=== PATIENT | female | born 1955 | race Caucasian/White ===

== ENCOUNTER → 2016-12-22 | Outpatient (CLI) | payer OTHER ==
--- NOTE | 2016-12-23 07:52 | XR ---
Right knee HISTORY: Pain and swelling 2 views of the right knee There is an ossific density in the suprapatellar bursa measuring approximately 19 x 17 mm. There is a joint effusion. Joint space loss at the patellofemoral joint is present with marginal spurring, royce inal spurring and joint space loss also present in the medial compartment. Sclerotic appearance in th e medial femoral condyle is noted measuring approximately 2.4 cm and shows a nonaggressive appearance , there is no cortical destruction or endosteal scalloping. Alignment is maintained. 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 Bone lesion may repres ent an enchondroma in the medial femoral condyle, if pain is attributable to this lesion, additional imaging would be recommended.
== END | disposition home or self-care (01) ==
LOC: RADXRYALE 15:06
PROVIDERS: ATTEND Internal Medicine
DX: M17.11 Unilateral primary osteoarthritis, right knee (principal)

== ENCOUNTER → 2019-05-17 | Outpatient (CLI) | payer OTHER ==
--- NOTE | 2019-05-18 09:45 | MM ---
Reason for exam: screening (asymptomatic). Last mammogram was performed 11 years and 1 month ago. History: Patient is postmenopausal. Took estrogen for 25 years beginning at age 27. Physical Findings: A clinical breast exam by your physician is recommended on an annual basis and results should be correlated with mammographic findings. MG Screening Mammo w CAD Bilateral CC and MLO view(s) were taken. Prior study comparison: April 03, 2008, bilateral digital screening mammogram. April 25, 2003, bilateral screening mammogram, performed at [facility]. The breast tissue is extremely dense which could obscure a lesion on mammography. Stable benign calcifications. There is no discrete abnormality. No significant changes when compared with prior studies. ASSESSMENT: Benign, BI-RAD 2 RECOMMENDATION: Routine screening mammogram of both breasts in 1 year.
== END | disposition home or self-care (01) ==
LOC: RADMAMWWP 14:14
PROVIDERS: ATTEND Internal Medicine
DX: Z12.31 Encounter for screening mammogram for malignant neoplasm of breast (principal)
CPT/HCPCS: 77067

== ENCOUNTER → 2019-05-31 | Outpatient (CLI) | payer OTHER ==
--- NOTE | 2019-05-31 16:02 | XR ---
EXAMINATION TYPE: XR knee limited RT DATE OF EXAM: 05/31/2019 COMPARISON: NONE HISTORY: Pain TECHNIQUE: 2 views are submitted. FINDINGS: Diffuse osteopenia. There is narrowing of the medial compartment and patellofemoral compartment of th e joint space. Soft tissue ossifications are seen overlying the suprapatellar bursa. Suggestion of a bipartite patella. Diffuse osteopenia noted and there is a small amount of fluid in the suprapatellar bursa. IMPRESSION: 1. Moderate to severe osteoarthritis. 2. Incidental note made of soft tissue calcifications which are nonspecific but can occasionally be a ssociated with dystrophic calcification or synovial chondromatosis
== END | disposition home or self-care (01) ==
LOC: RADXRYALE 13:27
PROVIDERS: ATTEND Internal Medicine
DX: M17.11 Unilateral primary osteoarthritis, right knee (principal)

== ENCOUNTER → 2019-07-01 | Outpatient (CLI) | payer OTHER ==
--- NOTE | 2019-07-01 17:07 | MR ---
EXAMINATION TYPE: MR knee RT wo con DATE OF EXAM: 07/01/2019 COMPARISON: Radiographs 05/31/2019 HISTORY: 63-year-old female Pain right knee TECHNIQUE: Multiplanar, multisequence imaging of the right knee is performed without IV contrast. FINDINGS: ACL and PCL are intact. Some edematous change along the myotendinous junction of the popliteus. LCL complex otherwise intact. Some edematous change on either side of the intact MCL fibers. There is a posterior root tear of the medial meniscus and additional horizontal cleavage tear involvi ng the posterior horn extending to the junction with the posterior body. The body of the medial menis cus is moderately extruded. Severe loss of cartilage and joint space especially along the mid weightbearing and mid peripheral as pect of the medial compartment. Underlying marrow edema and marginal spurring. Lateral meniscus appears intact. Mild diffuse thinning of lateral compartment articular cartilage vol ume with some superficial cartilage irregularity along the posterior weightbearing aspect of the femo ral condyle. Severe loss of cartilage along the medial and lateral patellar facets with marginal spurring in the p atellofemoral compartment. Extensor mechanism is intact. Moderate to large knee joint effusion with a couple large 1.7 cm loose bodies within the medial gutte r of the suprapatellar pouch. No sizable Rodriguez's cyst. However, prominent fluid extends along the pop liteus tendon sheath with numerous small loose bodies measuring up to 6 mm. Multilocular ganglion cyst measuring up to 3.1 x 2.6 cm at the lateral gastrocnemius origin. Normal pulmonary artery anatomy. Mild generalized muscular atrophy. No suspicious bone marrow replace ment. IMPRESSION: 1. Severe medial compartmental osteoarthrosis with reactive marrow edema. There is a posterior root t ear of the medial meniscus with extrusion of the meniscal body and additional horizontal cleavage tea r of the posterior horn. 2. Moderate overall patellofemoral compartmental osteoarthrosis with severe cartilage loss along the medial and lateral patellar facets. 3. Gvbl-kq-bktngjio strain along the myotendinous junction the popliteus and grade 1 MCL sprain. 4. Moderate to large knee joint effusion with a couple 1.7 cm loose bodies in the medial gutter of th e suprapatellar pouch and numerous small loose bodies measuring up to 6 mm along the popliteus tendon sheath.
== END | disposition home or self-care (01) ==
LOC: RADMRIMAIN 09:17
PROVIDERS: ATTEND Physician Assistant
DX: M17.11 Unilateral primary osteoarthritis, right knee (principal); S83.241A Other tear of medial meniscus, current injury, right knee, initial encounter; S83.411A Sprain of medial collateral ligament of right knee, initial encounter; D21.21 Benign neoplasm of connective and other soft tissue of right lower limb, including hip

== ENCOUNTER → 2021-01-02 | Outpatient (CLI) | payer OTHER ==
--- NOTE | 2021-01-06 15:07 | MM ---
Reason for exam: screening (asymptomatic). Last mammogram was performed 1 year and 8 months ago. History: Patient is postmenopausal. Took estrogen for 25 years beginning at age 27. Physical Findings: A clinical breast exam by your physician is recommended on an annual basis and results should be correlated with mammographic findings. MG Screening Mammo w CAD Bilateral CC and MLO view(s) were taken. Prior study comparison: May 17, 2019, bilateral MG screening mammo w CAD. The breast tissue is extremely dense which could obscure a lesion on mammography. Benign vascular, round and dystrophic calcifications. No significant changes when compared with prior studies. ASSESSMENT: Benign, BI-RAD 2 RECOMMENDATION: Routine screening mammogram of both breasts in 1 year. Patient should continue monthly self breast exams. A negative report should not preclude additional follow up of suspicious palpable abnormalities.
== END | disposition home or self-care (01) ==
LOC: RADMAMWWP 11:30
PROVIDERS: ATTEND Internal Medicine
DX: Z12.31 Encounter for screening mammogram for malignant neoplasm of breast (principal); Z78.0 Asymptomatic menopausal state; Z79.818 Long term (current) use of other agents affecting estrogen receptors and estrogen levels
CPT/HCPCS: 77067

== ENCOUNTER → 2022-10-28 | Outpatient (CLI) | payer MEDICARE, OTHER ==
[2022-10-28 15:29] LABS: INR 0.9 (<1.2); Partial Thromboplastin Time 23.4 sec (22.0-30.0)
[2022-10-28 20:05] LABS: HCT 33.1 % (37.2-46.3); MCH 30.3 pg (27.0-32.0); MCHC 33.2 g/dL (32.0-37.0); MCV 91.2 fL (80.0-97.0); Mean Platelet Volume 8.5 fL (9.5-12.2); NRBC Per 100 WBC 0 /100 WBCS (0.0-0.0); Platelet Count 556 X 10*3/uL (140-440); RBC 3.63 X 10*6/uL (4.10-5.20); RDW 12.7 % (11.5-14.5); WBC 8.84 X 10*3/uL (4.50-10.00)
[2022-10-28 20:48] LABS: African American GFR (CKD) 110.3 (60.0-200.0); Albumin 4.3 g/dL (3.8-4.9); Albumin/Globulin Ratio 1.55 (1.60-3.17); Anion Gap 15.8 mmol/L (10.00-18.00); BUN/Creat Ratio 10.76 Ratio (12.00-20.00); Blood Urea Nitrogen 6.6 mg/dL (9.0-27.0); Calcium 9.4 mg/dL (8.7-10.3); Carbon Dioxide 21.1 mmol/L (20.0-27.5); Globulin 2.8 g/dL (1.6-3.3); Non-African American GFR(CKD) 95.2 (60.0-200.0); Potassium 4.4 mmol/L (3.5-5.5); Total Bilirubin 0.3 mg/dL (0.30-1.20)
[2022-10-28 21:19] LABS: Appearance,Urine Clear (Clear); Bilirubin,Urine Negative (Negative); Blood,Urine Negative (Negative); Color,Urine Yellow (Yellow); Ketones,Urine Negative (Negative); Nitrite,Urine Negative (Negative); Specific Gravity,Urine 1.004 (1.001-1.030); Urobilinogen,Urine 0.2 (0.2,1.0)
== END | disposition home or self-care (01) ==
LOC: LABPAT 14:32
PROVIDERS: ATTEND Orthopaedic Surgery Sports Medicine
DX: Z01.812 Encounter for preprocedural laboratory examination (principal); M17.11 Unilateral primary osteoarthritis, right knee
CPT/HCPCS: 80053; 81003; 85027; 85610; 85730; 87070

== ENCOUNTER 2022-11-05 05:42 | Day surgery (SDC) | payer MEDICARE, OTHER ==
[~2022-11-05 05:42] MED LIST: ACETAMINOPHEN TAB 500 MG TAB PO PRN; GABAPENTIN 300 MG CAP PO PRN; MELOXICAM 7.5 MG TAB PO PRN; ONDANSETRON 4 MG/2 ML VIAL IVP PRN; TRANEXAMIC ACID IN NACL,ISO-OS 1,000 MG in SALINE 1 100ML.BAG IVPB PRN
[2022-11-05] MEDS ORDERED: DEXAMETHASONE SOD PHOSPHATE 4 MG/ML 1 ML VIAL IV ONE (05:44)
[2022-11-05] MEDS ORDERED: ONDANSETRON 4 MG/2 ML VIAL IVP ONE (05:44)
[2022-11-05] MEDS: LACTATED RINGERS 1,000 ML IV SCH ×2 (05:52→12:22)
[2022-11-05] MEDS ORDERED: MIDAZOLAM 2 MG/2 ML VIAL IVP ONE (06:40)
[2022-11-05] MEDS ORDERED: MIDAZOLAM 2 MG/2 ML VIAL ONE (06:55)
[2022-11-05] MEDS ORDERED: PHENYLEPHRINE-0.9% NACL SYG 1,000 MCG/10 ML SYRINGE ONE (06:55)
[2022-11-05] MEDS ORDERED: SODIUM CHLORIDE 0.9% (PF) 10 ML VIAL ONE (06:55)
[2022-11-05] MEDS ORDERED: TRANEXAMIC ACID IN NACL,ISO-OS 1,000 MG/100 ML BAG ONE (06:55)
[2022-11-05] MEDS ORDERED: PROPOFOL 10 MG/ML 20 ML VIAL IV ONE (06:55)
[2022-11-05] MEDS ORDERED: fentaNYL (PF) 50 MCG/ML 2 ML AMP ONE (06:55)
[2022-11-05] MEDS ORDERED: ROPIVACAINE 5 MG/ML 30 ML VIAL ONE (06:55)
[2022-11-05] MEDS ORDERED: HYDROmorphone 0.5 MG/0.5 ML SYRINGE IVP PRN ×4 (07:00→08:59)
--- NOTE | 2022-11-05 08:35 | P.ANPRN ---
Procedure Note - Anesthesia - Nerve Block Performed Right Adductor Canal Infusion Time Out Performed: Yes (0639) Date of Procedure: 11/05/22 Procedure Start Time: 06:40 Procedure Stop Time: 06:46 Location of Patient: PreOp Indication: Acute Post-Operative Pain, Requested by Surgeon Specifically requested for management of pain by DrShanae: Stanley Tyson Sedation Type: Sedate with meaningful contact maintained Preparation: Sterile Prep, Sterile Dressing Position: Supine Catheter Depth at Skin (cm): 5 Catheter: Indwelling Needle Types: Pajunk Needle Gauge: 18 Ultrasound used to visualize needle placement: Yes Ultrasound used to observe medication spread: Yes Injectate: 0.5% Ropivacaine (see comment for volume) (15cc +5cc nacl pf) Blood Aspirated: No Pain Paresthesia on Injection Noted: No Resistance on Injection: Normal Image Stored and Saved: Yes Events: Uneventful and Well Tolerated
--- NOTE | 2022-11-05 08:36 | P.ANPRN ---
Procedure Note - Anesthesia - Nerve Block Performed Right iPack Single Time Out Performed: Yes (0639) Date of Procedure: 11/05/22 Procedure Start Time: 06:47 Procedure Stop Time: 06:50 Location of Patient: PreOp Indication: Acute Post-Operative Pain, Requested by Surgeon Specifically requested for management of pain by DrShanae: Stanley Tyson Sedation Type: Sedate with meaningful contact maintained Preparation: Sterile Prep Position: Supine Catheter: None Needle Types: Pajunk Needle Gauge: 21 Ultrasound used to visualize needle placement: Yes Ultrasound used to observe medication spread: Yes Injectate: 0.5% Ropivacaine (see comment for volume) (15cc +5cc nacl pf) Blood Aspirated: No Pain Paresthesia on Injection Noted: No Resistance on Injection: Normal Image Stored and Saved: Yes Events: Uneventful and Well Tolerated
[2022-11-05] MEDS ORDERED: ONDANSETRON 4 MG/2 ML VIAL IVP PRN (08:59)
[2022-11-05] MEDS ORDERED: diazePAM 5 MG TAB PO PRN (08:59)
[2022-11-05] MEDS ORDERED: NA PHOS,M-B/NA PHOS,DI-BA 133 ML ENEMA RECTAL PRN (08:59)
[2022-11-05] MEDS ORDERED: traMADol 50 MG TAB PO PRN (08:59)
[2022-11-05] MEDS ORDERED: bisacodyL 10 MG SUPP RECTAL PRN (08:59)
[2022-11-05] MEDS ORDERED: ACETAMINOPHEN TAB 325 MG TAB PO PRN (08:59)
[2022-11-05] MEDS ORDERED: TEMAZEPAM 15 MG CAP PO PRN (08:59)
[2022-11-05] MEDS ORDERED: NALOXONE 0.4 MG/ML 1 ML VIAL IV PRN (08:59)
[2022-11-05] MEDS ORDERED: MAGNESIUM HYDROXIDE 2,400 MG/10 ML CUP PO PRN (08:59)
[2022-11-05] MEDS ORDERED: ROPIVACAINE 1,100 MG, SODIUM CHLORIDE 0.9% 500 ML 330 ML, EMPTY PAIN BALL 1 EACH MISCELLANE PRN ×2 (09:04)
--- NOTE | 2022-11-05 10:08 | XR ---
EXAMINATION TYPE: XR knee limited RT DATE OF EXAM: 11/05/2022 COMPARISON: NONE TECHNIQUE: Two views submitted HISTORY: Post op FINDINGS: There is a prosthetic knee in near anatomic alignment. There is soft tissue edema and emphysema. IMPRESSION: 1. Postoperative change. Appears in near-anatomic alignment
--- NOTE | 2022-11-05 13:45 | OP ---
OPERATIVE REPORT DATE OF SERVICE : 11/05/2022 FINISH REMOVER: Jeremiah Kaufman PA-C PREOPERATIVE DIAGNOSIS: Right knee osteoarthrosis. POSTOPERATIVE DIAGNOSIS: Right knee osteoarthrosis. PROCEDURES PERFORMED: Right total knee arthroplasty. ANESTHESIA: Spinal with sedation. ESTIMATED BLOOD LOSS: 100 mL. TOURNIQUET TIME: 47 minutes at 250 mmHg. COMPLICATIONS: None apparent. DRAINS: None. DISPOSITION: Postanesthesia care unit. INDICATIONS FOR PROCEDURE: Sarah is a 67-year-old female with longstanding history of right knee pain. History and physical examination are consistent with advanced right knee osteoarthrosis. She has been through significant operative management at this point. Further treatment options were discussed, and she decided to go for the right total knee arthroplasty. The risks of procedure were discussed with her in detail. These risks include but are not limited to risk of infection, nerve damage, bleeding, pain, and a small risk of deep vein thrombosis which could lead to fatal pulmonary embolism. There is also risk of loosening of the implant which could require revision operation. The patient understands these risks. All of her questions were answered to her satisfaction. An appropriate informed consent was obtained. DESCRIPTION OF PROCEDURE: The patient was identified in the preoperative holding area. Surgical site was marked by both the patient and myself. She was given 2 g of Ancef IV prophylactic purposes. She was then transported to the operative suite. She was placed supine on the operating room table. A spinal anesthetic was then administered, dosed per the Anesthesia Department without apparent complication. Examination under anesthesia was then performed. The patient was 2 to 3 degrees shy of full extension. She had 100 degrees of flexion. Medial collateral ligament, lateral collateral ligament, posterior cruciate ligaments were stable. Tourniquet was then placed high on the right upper thigh well-padded in preparation for surgery. The patient's right lower extremity was then prepped and draped in the usual sterile fashion. Standard surgical pause undertaken to ensure that we were operating the correct site and that appropriate preoperative antibiotics had been given. All staff in the room were in agreement, and we proceeded. The outlines of the patella marked with a surgical pen. A planned 12 cm vertical incision centered over the patella was marked with a surgical pen. Upper leg was then exsanguinated with an Esmarch dressing. The knee was then flexed, and the tourniquet was inflated to 250 mmHg. The total tourniquet time for the procedure was 47 minutes. Incision was then made with a 10-blade scalpel. This dissection was carried down sharply overlying fascia. Great care was taken to minimize the skin flaps. The knee was then exposed using a standard medial parapatellar approach. A small cuff of quadriceps tendon was then left for suturing. She was in quite a bit of varus preoperatively. A standard medial release was then made. Superficial medial collateral ligament dissected off the bone around to the posterior aspect of the proximal tibia. The medial meniscus was then excised as well. The lateral meniscus was also released anteriorly. The leg was then externally rotated. The patella was everted. The knee was flexed. Retractors were then placed to protect the collateral ligaments. I then proceeded to remove the infrapatellar fat pad. This was excised sharply tangentially with fibers of the patellar tendon. I then proceeded to remove the peripheral osteophytes. This was done with a rongeur. I then proceeded with the distal resection. She did have near full extension. A planned 9 mm resection was then done. The femoral canal was then entered in midline of the femur approximately 10 mm anterior to the origin of the posterior cruciate ligament. The reshma was then advanced down the center of the femur and placed intramedullary. Based on the preoperative radiographs, the angle between the anatomic and mechanical axis of the femur was approximately 4 to 5 degrees. The valgus angle of the distal femoral cutting guide was then set at 4 degrees for the right knee. The distal femoral cutting guide was then advanced over the intramedullary reshma. This was seated firmly against the femur. I then as mentioned, planned to take 9 mm off the distal femur. The cutting block was then secured onto the femur with pins. The jig was then removed. The distal femoral cut was made through the slot of the block. The pins were removed. The distal femoral cutting block was removed. The accuracy of the distal femoral cuts was checked with 2 flat bars. I then proceeded with femoral sizing. Posterior referencing sizing guide was held firmly against the resected distal surface of the femur. The posterior condyles were resting on the posterior plane of the guide. The sizing stylus was then placed on the anterior femur. The size was measured as a size 8. I then assessed for femoral rotation. Planned for 3 degrees of external rotation. A 3 degrees of external rotation was placed onto the jig. These holes were then marked and then confirmed with the rotation by 3 separate methods. This was done using epicondylar axis as well as Whitesides line and posterior referencing. It was deemed that the external rotation was proper. I therefore placed the femoral cutting block. This was placed over the previously placed pin holes. The Manolo wing was then placed on the anterior slots to ensure that we would not notch the anterior femur with the anterior femoral cut. I then proceeded with the anterior femoral cut. This was flushed with the anterior cortex of the femur. The posterior cuts were then made followed by the anterior chamfer cut, then the posterior chamfer cut. The cutting block was then removed. Throughout the resection, the collateral ligaments were protected with retractors. I then placed a trial size 8 femur. It was slightly wide but the narrow fit very nicely, and it fit flush with the distal end of the femur. The drill hole was then made. I then proceeded with the tibial cut. Planned for cruciate-retaining knee. The guide was placed and set for varus, valgus and for slope. The height was set for approximately 2 mm resection from the medial tibial plateau which was the lower side. I was happy with alignment and the amount of resection. The cutting block was then pinned to the proximal tibia. The alignment reshma was removed and the proximal tibia was resected with a reciprocating saw. Again, this was done with retractors protecting the collateral ligaments as well as the posterior cruciate ligament. I then proceeded to evaluate the flexion extension gaps. A 10 mm block was then placed. The flexion extension gaps were equal. I then proceeded with resection of posterior osteophytes. She had fairly extensive posterior osteophytes. This was done using a curved osteotome. This resected the posterior osteophytes, and posterior capsular stripping was done off the posterior aspect of the femur at this time. The osteophytes were then removed. I then proceeded with resection of the patella. The thickness of patella was measured using the caliper. The thickness was 22 mm. The thickness of the anticipated patellar dome was taken into account. Resection was then performed and confirmed to be equal in 4 quadrants using a caliper. Approximately 14 mm of bone remained after resection. A 29 x 8 mm standard patellar trial was then placed. The holes drilled. The trial was then placed. I then proceeded with sizing the tibial plate. A size D tibial plate fit very nicely. I then placed the trial femur, the tibial tray, and the patellar button. A 10 mm trial tibial insert was also placed. The components fit very nicely. She had full extension and flexion. The extension and flexion gaps were equal and stable to both varus and valgus stress. The patella tracked appropriately. The tibial tray rotation was then marked with a Bovie. This was externally rotated properly. I then proceeded with tibial preparation. I first drilled the femoral holes and removed the femoral component. The tibial tray was then set for proper external rotation as well as medial and lateral placement onto the tibia. It was then pinned into place. I then proceeded with punching the keel. I then decided to proceed with cementing of all our components. The knee was thoroughly irrigated with sterile saline solution via pulse lavage. The lateral genicular artery was identified and cauterized. All blood was removed from the bone of the tibia, femur, and patella with pulsed lavage. I then proceeded with cementing. Two packs of antibiotic bone cement prepared on the back table by the science technician. I then proceeded with cementing the tibia first. The cement was impacted into the keel as well as deeply seated into the bone. A second coat of cement was then placed. The tibia was then impacted into place. Excess cement was removed with Wayne's and Joker's. I then proceeded with cementing of the femoral component. The femoral component was also cemented using standard technique. Excess cement was removed. A 10 mm trial insert was then placed in the knee. It was brought into full extension with a constant axial load placed until the cement had hardened. The patellar component was then cemented. This was held firmly with a compressive device until the cement had dried. When the cement had dried, the knee was taken out of extension. All excess cement was removed from around the prosthesis. I then trialed the knee with a 10 mm insert. Flexion and extension gaps were appropriate. The knee was stable. It came into full extension. I decided to go forward with a 10 mm Medial Congruent cross-linked cruciate- retaining tibial insert. Polyethylene was then placed onto the tibial tray and locked into place. The knee was then reduced. The knee was again further irrigated with sterile saline solution with antibiotic added. The tourniquet was then deflated. Total tourniquet time for the procedure was 47 minutes at 250 mmHg. Final components were Aurelio Persona size 8 narrow cruciate-retaining femoral component, size D tibial tray, a 10 mm Medial Congruent cruciate-retaining polyethylene insert, and a 29 x 8 mm patella. I then proceeded with closure. Again, the knee was thoroughly irrigated. The quadriceps tendon and medial retinaculum were reapproximated with #2 Ethibond suture. The extensor mechanism was then closed with a running #2 Quill suture. Subcutaneous tissues were closed with 2-0 Vicryl interrupted suture. The skin was closed with a running 3-0 Quill suture. Dermabond was applied to the incision. Sterile compressive dressing was then applied. All sponge and needle counts were deemed correct prior to closure. The patient tolerated the procedure without apparent complication. She was transferred to the recovery room in stable condition. MMODL / IJN: [id number] /
[2022-11-05] MEDS: HYDROcodone/APAP 7.5-325MG 1 EACH TAB PO PRN ×2 (15:27→20:45)
--- NOTE | 2022-11-05 16:12 | OP ---
OPERATIVE REPORT DATE OF SERVICE : 11/05/2022 RAIL LAYER: Jeremiah Kaufman PA-C. PREOPERATIVE DIAGNOSIS: Right knee osteoarthrosis. POSTOPERATIVE DIAGNOSIS: Right knee osteoarthrosis. OPERATION: Right total knee arthroplasty. ANESTHESIA: Spinal with sedation. ESTIMATED BLOOD LOSS: 100 mL. TOURNIQUET TIME: 47 minutes at 250 mmHg. COMPLICATIONS: None apparent. DRAINS: None. DISPOSITION: Postanesthesia care unit. INDICATIONS FOR PROCEDURE: Sarah is a very pleasant 67-year-old female with longstanding history of right knee pain. Her symptoms examination are consistent with advanced right knee osteoarthrosis. She has been through significant operative management up to this point. Further treatment options were discussed, and she decided to go for the right total knee arthroplasty. Risks of procedure were discussed with her in detail. These risks include but are not limited to risk of infection, nerve damage, bleeding, pain, and a small risk of deep vein thrombosis which could lead to fatal pulmonary embolism. There is also small risk of loosening of the implant which could require revision operation. The patient understands these risks. All of her questions were answered to her satisfaction. Appropriate informed consent was obtained. DESCRIPTION OF PROCEDURE: The patient was identified in the preoperative holding area. Surgical site was marked by both the patient and myself. She was given 2 g of Ancef IV for prophylactic purposes. She was then transferred to the operative suite. She was placed supine on the operating room table. A spinal anesthetic was then administered, dosed per the Anesthesia Department without apparent complication. An examination under anesthesia was then performed. The patient was 2 to 3 degrees shy of full extension. She had 100 degrees of flexion. Medial collateral ligament, lateral collateral ligament, posterior cruciate ligaments were stable. Tourniquet was then placed high on the right upper thigh, well-padded in preparation for surgery. The patient's right lower extremity was then prepped and draped in the usual sterile fashion. Standard surgical pause undertaken to ensure that we were operating the correct site and that appropriate preoperative antibiotics had been given. All staff in the room were in agreement, and we proceeded. The outlines of the patella marked with a surgical pen. A planned 12 cm vertical incision centered over the patella was marked with a surgical pen. Upper leg was then exsanguinated with an Esmarch dressing. The knee was then flexed, and the tourniquet was inflated to 250 mmHg. The total tourniquet time for the procedure was 47 minutes. Incision was then made with a 10-blade scalpel. This dissection was carried down sharply overlying fascia. Great care was taken to minimize the skin flaps. The knee was then exposed using a standard medial parapatellar approach. A small cuff of quadriceps tendon was then left for suturing. She was in a bit of varus preoperatively. A standard medial release was then made. Superficial medial collateral ligament dissected off the bone around to the posterior aspect of the proximal tibia. The medial meniscus was then excised as well. The lateral meniscus was also released anteriorly. The leg was then externally rotated. The patella was everted. The knee was flexed. Retractors were then placed to protect the collateral ligaments. I then proceeded to remove the infrapatellar fat pad. This was excised sharply tangentially DICTATION ENDS HERE BRANDON / TETO: [id number] /
[2022-11-05] MEDS: ASPIRIN 81 MG PO SCH (20:45)
[2022-11-05] MEDS ORDERED: SENNOSIDES-DOCUSATE SODIUM 1 EACH TAB PO SCH (21:00)
[2022-11-06] MEDS: LACTATED RINGERS 1,000 ML IV SCH ×4 (00:16→16:01)
[2022-11-06] MEDS: HYDROcodone/APAP 7.5-325MG 1 EACH TAB PO PRN ×3 (04:11→16:09)
[2022-11-06] MEDS: ASPIRIN 81 MG PO SCH (08:08)
--- NOTE | 2022-11-06 09:51 | P.PN ---
Progress Note - Text Progress Note Date: 11/06/22 (638) Anesthesiology Postop day 1 status post total knee arthroplasty with adductor canal catheter. Patient doing well. VAS 2 out of 10. Gross strength intact in lower extremity. Afebrile. Denies alterations in sensorium. Catheter site intact. Heart regular rate Lungs nonlabored Abdomen nondistended Assessment: Postop day 1 status post total knee arthroplasty with adductor canal catheter Plan: 1.All questions answered. Maintain catheter 2 more days with patient removal at home. Instructions to be given at discharge. 2.This note was dictated using [employer] software. Please be advised there is a potential for misspellings or errors in loading machine tool setter.
[2022-11-06] MEDS ORDERED: LOSARTAN 50 MG TAB PO SCH (10:30)
[2022-11-06] MEDS ORDERED: CHOLECALCIFEROL 25 MCG (1000 IU) TABLET PO SCH (10:30)
[2022-11-06] MEDS ORDERED: METOPROLOL TARTRATE 50 MG TAB PO SCH (10:30)
[2022-11-06 11:12] LABS: HCT 28.9 % (37.2-46.3); HGB 9.3 g/dL (12.0-15.0); MCH 29.5 pg (27.0-32.0); MCHC 32.2 g/dL (32.0-37.0); MCV 91.7 fL (80.0-97.0); NRBC Per 100 WBC 0 /100 WBCS (0.0-0.0); Platelet Count 400 X 10*3/uL (140-440); RBC 3.15 X 10*6/uL (4.10-5.20); RDW 13.2 % (11.5-14.5); WBC 13.03 X 10*3/uL (4.50-10.00)
[2022-11-06] MEDS ORDERED: MULTIVITAMINS, THERA 1 EACH TAB PO SCH (12:00)
[2022-11-06 13:13] LABS: Acanthocytes 2+; Basophils # (A) 0.05 X 10*3/uL (0.00-0.10); Basophils % (A) 0.4 %; Elliptocytes 2+; Eosinophils # (A) 0.06 X 10*3/uL (0.04-0.35); Eosinophils % (A) 0.5 %; Immature Grans, Automated 0.5 %; Lymphocytes # (A) 1.77 X 10*3/uL (0.90-5.00); Lymphocytes % (A) 13.6 %; Monocytes # (A) 1.72 X 10*3/uL (0.20-1.00); Monocytes % (A) 13.2 %; Neutrophils # (A) 9.37 X 10*3/uL (1.80-7.70); Neutrophils % (A) 71.8 %
--- NOTE | 2022-11-06 14:43 | P.CONS ---
History of Present Illness - Reason for Consult Consult date: 11/06/22 Medical management, status post right knee arthroplasty - History of Present Illness This is a pleasant 67-year-old female who was admitted under orthopedic services Dr. Tyson and underwent right total knee arthroplasty. Patient reports she follows with Dr. River in the outpatient setting along with Dr. Moore cardiology and underwent presurgical clearance with her primary care provider as well as cardiology. Patient has past medical history of coronary artery disease, COPD, hyperlipidemia, hypertension, osteoarthritis, reports to smoking cigarettes and occasionally uses marijuana herbals. Patient reports to occasionally drinking although not daily. Patient's right knee dressing is dry and intact with no cheryl rounding redness or significant swelling noted. Patient has been up and walking reports is doing well is anticipating going home today. Patient does have some elevated blood pressures of 145/69 and recommend resume medications as she normally takes losartan and Lopressor at home. WBC this morning slightly elevated most likely reactive as patient is afebrile denies shortness of breath or any pain or burning with urination. Patient denies chest pain or palpitations and anxious about going home. Patient reports she is awaiting orthopedic this morning. Review Of Systems: Constitutional: No fever, no chills, no night sweats. No weight change. No weakness, fatigue or lethargy. No daytime sleepiness. EENT: No headache. No blurred vision or double vision, no loss of vision. No loss of Hearing, no ringing in the ears, no dizziness. No nasal drainage or congestion. No epistaxis. No sore throat. Lungs: No shortness of breath, cough, no sputum production. No wheezing. Cardiovascular: No chest pain, no lower extremity edema. No palpitations. No paroxysmal nocturnal dyspnea. No orthopnea. No lightheadedness or dizziness. No syncopal episodes. Abdominal: No abdominal pain. No nausea, vomiting. No diarrhea. No constipation. No bloody or tarry stools.. No loss of appetite. Genitourinary: No dysuria, increased frequency, urgency. No urinary retention. Musculoskeletal: No myalgias. No muscle weakness, no gait dysfunction, no frequent falls. No back pain. No neck pain. Reports some mild right lower extremity discomfort Integumentary: No wounds, no lesions. No rash or pruritus. No unusual bruising. No change in hair or nails. Neurologic: No aphasia. No facial droop. No change in mentation. No head injury. No headache. No paralysis. No paresthesia. Psychiatric: No depression. No anxiety. No mood swings. Endocrine: No abnormal blood sugars. No weight change. No excessive sweating or thirst. No cold intolerance. PHYSICAL EXAMINATION: GENERAL: The patient is alert and oriented x4, Well developed, well nourished. HEENT: Pupils are round and equally reacting to light. EOMI. no scleral icterus. No conjunctival pallor. Normocephalic, atraumatic. No pharyngeal erythema. No thyromegaly. CARDIOVASCULAR: S1 and S2 muffled PULMONARY: diminished breath sounds bilaterally with no wheezing or rhonchi noted. ABDOMEN: soft. Nontender on exam. non-distended, normoactive bowel sounds. No palpable organomegaly. MUSCULOSKELETAL: No joint swelling or deformity. Right knee surgical dressing is dry and intact with no redness and minimal swelling noted EXTREMITIES: No cyanosis, clubbing, or pedal edema. NEUROLOGICAL: Gross neurological examination did not reveal any focal deficits. SKIN: No rashes. Assessment: Status post right total knee arthroplasty Mild leukocytosis, most likely reactive as patient is afebrile with no signs of infection Hypertension Hyperlipidemia History of COPD, not in exacerbation History of coronary artery disease Osteoarthritis Continued ongoing nicotine dependence GI prophylaxis DVT prophylaxis Full code Plan: Recommend to continue with current medications and management per orthopedic services. Patient has been seen and evaluated by PT/OT therapy and reports to doing well. Patient anticipates going home today. Patient is status post right total knee arthroplasty and awaiting orthopedics this morning. Patient is mildly hypertensive and will resume home medications and recommended encouraged to continue taking medications and outpatient follow-up with primary care provider. Clinical medications have been reviewed and resumed and patient is medically stable for discharge today. Thank you kindly for this consultation and we will continue to follow during hospitalization. The impression and plan of care has been dictated by Cinthia Raymond, nurse practitioner as directed. Dr. Stephanie MD I have performed a history and examination and MDM of this patient, discussed the same with the dictator, and agree with the dictator's assessment and plan as written ,documented as a scribe. Based on total visit time, I have performed more than 50% of the visit. Any additional findings or plans will be noted. Past Medical History Past Medical History: Coronary Artery Disease (CAD), COPD, Hyperlipidemia, Hypertension, Osteoarthritis (OA) History of Any Multi-Drug Resistant Organisms: None Reported Past Surgical History: Adenoidectomy, Appendectomy, Cholecystectomy, Heart Catheterization, Hysterectomy, Orthopedic Surgery, Tonsillectomy Additional Past Surgical History / Comment(s): surg. to repair right foot fx., right arm srug, total hysterectomy Past Anesthesia/Blood Transfusion Reactions: Previous Problems w/ Anesthesia Additional Past Anesthesia/Blood Transfusion Reaction / Comm: BP became low after hyst. years ago Past Psychological History: No Psychological Hx Reported Smoking Status: Current every day smoker Past Alcohol Use History: Occasional Additional Past Alcohol Use History / Comment(s): down to 1/2ppd from 1ppd for 30 yrs. Past Drug Use History: Marijuana Additional Drug Use History / Comment(s): edibles @times - Past Family History Mother Family Medical History: No Reported History Medications and Allergies Home Medications Medication Instructions Recorded Confirmed Type Aspirin 81 mg PO DAILY 11/04/22 11/05/22 History Cholecalciferol [Vitamin D3 (25 25 mcg PO DAILY 11/04/22 11/05/22 History Mcg = 1000 Iu)] Ibuprofen [Motrin Ib] 200 - 400 mg PO Q6H PRN 11/04/22 11/05/22 History Losartan Potassium [Cozaar] 50 mg PO DAILY 11/04/22 11/05/22 History Metoprolol Tartrate [Lopressor] 50 mg PO BID 11/04/22 11/05/22 History Rosuvastatin [Crestor] 10 mg PO DAILY 11/04/22 11/05/22 History Aspirin [Adult Low Dose Aspirin EC] 81 mg PO BID #60 tab 11/06/22 Rx Docusate [Colace] 100 mg PO BID #60 capsule 11/06/22 Rx HYDROcodone/APAP 7.5-325MG [[place] 1 - 2 each PO Q6HR PRN #42 tab 11/06/22 Rx 7.5-325] Ondansetron [Zofran] 4 mg PO Q8HR PRN #21 tab 11/06/22 Rx Allergies Allergy/AdvReac Type Severity Reaction Status Date / Time No Known Allergies Allergy Verified 11/05/22 05:48 Physical Exam Vitals: Vital Signs Temp Pulse Pulse Resp BP Pulse Ox 11/06/22 08:05 17 11/06/22 06:55 98.1 F 76 17 145/69 98 11/06/22 01:04 97.8 F 69 18 132/69 96 11/05/22 20:00 98.6 F 70 16 113/44 97 11/05/22 13:00 98.1 F 78 19 155/72 97 11/05/22 12:00 19 11/05/22 11:59 97.4 F L 66 19 137/74 98 11/05/22 11:30 68 16 133/62 97 11/05/22 11:00 74 16 139/73 97 11/05/22 10:45 68 16 129/61 95 11/05/22 10:30 67 16 137/66 96 Intake and Output 11/05/22 11/06/22 11/06/22 22:59 06:59 14:59 Intake Total 118 1250 Balance 118 1250 Intake: Intake, IV Titration 1250 Amount Lactated Ringers 1,000 ml 1200 @ 100 mls/hr IV .Q10H RAMIN Rx#:[id number] ceFAZolin 2 gm In Sodium 50 Chloride 0.9% 50 ml @ 100 mls/hr IVPB Q8HR RAMIN Rx# :[id number] Oral 118 Other: Voiding Method Bedpan Bedpan # Voids 1 1 1 Results CBC & Chem 7: 11/06/22 06:03
[2022-11-06 15:05] VITALS: BP 120/73; PULSE 60; RESP 18; TEMP 98.8
--- NOTE | 2022-11-06 17:32 | P.DS ---
Providers Expected date of discharge: 11/06/22 Attending physician: Stanley Tyson Consults: 11/05/22 08:59 Consult Physician Routine Consulting Provider: Popeye Cuevas Consult Reason/Comments: post op medical management Do you want consulting provider notified?: Yes Primary care physician: Kristen River - Discharge Diagnosis(es) (1) Osteoarthritis of right knee Patient was admitted to the OR on 11/05/22 to undergo a right total knee arthroplasty. She had failed conservative measures as an outpatient and desired to proceed with elective surgery after given informed consent. She underwent the above procedure which she tolerated well without complication. Postoperative hospital course has remained without complication. On day of discharge she is afebrile, vital signs stable, labs within acceptable ranges, tolerating by mouth meds and diet, voiding without difficulty, positive flatus, denies abdominal pain or calf pain, pain is controlled on oral pain medication and has no new complaints. Wound is benign, neurovascular status is intact, calf is soft and nontender, abdomen soft and nontender. Review of systems is negative for numbness, tingling, fever, chills, chest pain, shortness of breath, nausea, vomiting, dizziness, headaches, slurred speech or other. Status: Acute Priority: Medium Procedures: Right TKA Patient Condition at Discharge: Good Plan - Discharge Summary Discharge Rx Participant: Yes New Discharge Prescriptions: New Aspirin [Adult Low Dose Aspirin EC] 81 mg PO BID #60 tab Docusate [Colace] 100 mg PO BID #60 capsule Ondansetron [Zofran] 4 mg PO Q8HR PRN #21 tab PRN Reason: Nausea HYDROcodone/APAP 7.5-325MG [Driver 7.5-325] 1 - 2 each PO Q6HR PRN #42 tab PRN Reason: Pain Continue Rosuvastatin [Crestor] 10 mg PO DAILY Losartan Potassium [Cozaar] 50 mg PO DAILY Ibuprofen [Motrin Ib] 200 - 400 mg PO Q6H PRN PRN Reason: Pain Metoprolol Tartrate [Lopressor] 50 mg PO BID Cholecalciferol [Vitamin D3 (25 Mcg = 1000 Iu)] 25 mcg PO DAILY Aspirin 81 mg PO DAILY Discharge Medication List Aspirin 81 mg PO DAILY 11/04/22 [History] Cholecalciferol [Vitamin D3 (25 Mcg = 1000 Iu)] 25 mcg PO DAILY 11/04/22 [History] Ibuprofen [Motrin Ib] 200 - 400 mg PO Q6H PRN 11/04/22 [History] Losartan Potassium [Cozaar] 50 mg PO DAILY 11/04/22 [History] Metoprolol Tartrate [Lopressor] 50 mg PO BID 11/04/22 [History] Rosuvastatin [Crestor] 10 mg PO DAILY 11/04/22 [History] Aspirin [Adult Low Dose Aspirin EC] 81 mg PO BID #60 tab 11/06/22 [Rx] Docusate [Colace] 100 mg PO BID #60 capsule 11/06/22 [Rx] HYDROcodone/APAP 7.5-325MG [Driver 7.5-325] 1 - 2 each PO Q6HR PRN #42 tab 11/06/22 [Rx] Ondansetron [Zofran] 4 mg PO Q8HR PRN #21 tab 11/06/22 [Rx] Follow up Appointment(s)/Referral(s): Stanley Tyson MD [STAFF PHYSICIAN] - 11/17/22 11:00 am Discharge Disposition: HOME WITH HOME HEALTH SERVICES
[2022-11-07] MEDS ORDERED: ATORVASTATIN 20 MG TAB PO SCH (09:00)
== END 2022-11-06 16:58 | disposition home health service (06) ==
LOC: OR 05:42 → 4SSUR 08:50 → OR 11-06 16:58
PROVIDERS: ATTEND Orthopaedic Surgery Sports Medicine
DX: M17.11 Unilateral primary osteoarthritis, right knee (principal); M25.761 Osteophyte, right knee; G89.18 Other acute postprocedural pain; I10 Essential (primary) hypertension; E78.5 Hyperlipidemia, unspecified; J44.9 Chronic obstructive pulmonary disease, unspecified; F17.210 Nicotine dependence, cigarettes, uncomplicated; F10.20 Alcohol dependence, uncomplicated; Z79.51 Long term (current) use of inhaled steroids; Z79.1 Long term (current) use of non-steroidal anti-inflammatories (NSAID); Z79.899 Other long term (current) drug therapy
CPT/HCPCS: 27447; 97162; 97166; 64999; 64448; 85025; 88300; 73560; C1776; C1713; C1751; J2250; J1100; J0690 ×2; J2405; J3010; J2795; J2370; J2704; J1170

== ENCOUNTER → 2023-04-09 | Outpatient (CLI) | payer MEDICARE ==
[2023-04-09 15:46] LABS: INR 0.9 (<1.2); Partial Thromboplastin Time 24.9 sec (22.0-30.0)
[2023-04-09 16:03] LABS: Prothrombin Time 10.3 sec (10.0-12.5)
[2023-04-09 19:32] LABS: Basophils # (A) 0.06 X 10*3/uL (0.00-0.10); Basophils % (A) 0.8 %; Eosinophils % (A) 2.6 %; HCT 40.5 % (37.2-46.3); HGB 13.4 d/dL (12.0-15.0); Lymphocytes # (A) 1.89 X 10*3/uL (0.90-5.00); Lymphocytes % (A) 24.2 %; MCH 31.6 pg (27.0-32.0); MCHC 33.1 d/dL (32.0-37.0); MCV 95.5 FL (80.0-97.0); Mean Platelet Volume 9.1 FL (9.5-12.2); Monocytes # (A) 0.77 X 10*3/uL (0.20-1.00); Monocytes % (A) 9.8 %; NRBC Per 100 WBC 0 X 10*3/uL (0.00-0.01); Neutrophils # (A) 4.84 X 10*3/uL (1.80-7.70); Neutrophils % (A) 61.8 %; Platelet Count 451 X 10*3/uL (140-440); RBC 4.24 X 10*6/uL (4.10-5.20); RDW 12.7 % (11.5-14.5); WBC 7.82 X 10*3/uL (4.50-10.00)
[2023-04-10 03:11] LABS: ALT 19 U/L (8-44); AST 18 U/L (13-35); Albumin 4.6 d/dL (3.8-4.9); Albumin/Globulin Ratio 1.64 Ratio (1.60-3.17); Alkaline Phosphatase 96 U/L (41-126); Blood Urea Nitrogen 11.9 mg/dL (9.0-27.0); Carbon Dioxide 24.5 mmol/L (21.6-31.8); Chloride 95 mmol/L (96-109); Globulin 2.8 d/dL (1.6-3.3); Glucose 83 mg/dL (70-110); Potassium 5.1 mmol/L (3.5-5.5); Sodium 132 mmol/L (135-145); Total Bilirubin 0.4 mg/dL (0.3-1.2); Total Protein 7.4 d/dL (6.2-8.2)
[2023-04-10 05:20] LABS: Appearance,Urine Clear (Clear); Bilirubin,Urine Negative (Negative); Blood,Urine Negative (Negative); Color,Urine Yellow (Yellow); Ketones,Urine Negative (Negative); Nitrite,Urine Negative (Negative); Specific Gravity,Urine 1.008 (1.001-1.030); Urobilinogen,Urine 0.2 E.U./DL
== END | disposition home or self-care (01) ==
LOC: LABPAT 12:48
PROVIDERS: ATTEND Orthopaedic Surgery Sports Medicine
DX: Z01.812 Encounter for preprocedural laboratory examination (principal); M17.11 Unilateral primary osteoarthritis, right knee
CPT/HCPCS: 80053; 81003; 85025; 85610; 85730; 87070

== ENCOUNTER 2023-04-29 07:25 | Day surgery (SDC) | payer MEDICARE, OTHER ==
[~2023-04-29 07:25] MED LIST changes: +DEXAMETHASONE SOD PHOSPHATE 4 MG/ML 1 ML VIAL IV ONE; +HYDROmorphone 0.5 MG/0.5 ML SYRINGE IVP PRN; +LIDOCAINE 1% (10MG/ML) FOR IV START INTRADERMA PRN; +MIDAZOLAM 2 MG/2 ML VIAL IV PRN; +ONDANSETRON 4 MG/2 ML VIAL IVP ONE; +TRANEXAMIC 1,000 MG/100ML-NACL 1,000 MG in SALINE 1 100ML.BAG IVPB PRN; -TRANEXAMIC ACID IN NACL,ISO-OS 1,000 MG in SALINE 1 100ML.BAG IVPB PRN
[2023-04-29] MEDS: LACTATED RINGERS 1,000 ML IV SCH ×3 (08:19→17:09)
[2023-04-29] MEDS ORDERED: MIDAZOLAM 2 MG/2 ML VIAL IVP ONE (08:20)
[2023-04-29 08:39] LABS: African American GFR (CKD) >90 (>60 ml/min/1.73 sqM); Anion Gap 13 mmol/L; Blood Urea Nitrogen 12 mg/dL (7-17); Calcium 9.3 mg/dL (8.4-10.2); Carbon Dioxide 19 mmol/L (22-30); Chloride 103 mmol/L (98-107); Glucose 119 mg/dL (74-99); Non-African American GFR(CKD) >90 (>60 ml/min/1.73 sqM); Potassium 4.2 mmol/L (3.5-5.1); Sodium 135 mmol/L (137-145)
[2023-04-29] MEDS ORDERED: bisacodyL 10 MG SUPP RECTAL PRN (09:05)
[2023-04-29] MEDS ORDERED: NA PHOS,M-B/NA PHOS,DI-BA 133 ML ENEMA RECTAL PRN (09:05)
[2023-04-29] MEDS ORDERED: ONDANSETRON 4 MG/2 ML VIAL IVP PRN (09:05)
[2023-04-29] MEDS ORDERED: NALOXONE 0.4 MG/ML 1 ML VIAL IV PRN (09:05)
[2023-04-29] MEDS ORDERED: MAGNESIUM HYDROXIDE 2,400 MG/30 ML CUP PO PRN (09:05)
[2023-04-29] MEDS ORDERED: diazePAM 5 MG TAB PO PRN (09:05)
[2023-04-29] MEDS ORDERED: HYDROmorphone 0.5 MG/0.5 ML SYRINGE IVP PRN ×3 (09:05)
[2023-04-29] MEDS ORDERED: ACETAMINOPHEN TAB 325 MG TAB PO PRN (09:05)
[2023-04-29] MEDS ORDERED: traMADol 50 MG TAB PO PRN (09:05)
[2023-04-29] MEDS ORDERED: HYDROcodone/APAP 7.5-325MG 1 EACH TAB PO PRN (09:09)
[2023-04-29] MEDS ORDERED: KETAMINE HCL IN 0.9 % NACL 50 MG/5 ML SYRINGE ONE (09:50)
[2023-04-29] MEDS ORDERED: DEXAMETHASONE SOD PHOSPHATE 4 MG/ML 1 ML VIAL ONE (09:50)
[2023-04-29] MEDS ORDERED: PROPOFOL 10 MG/ML 20 ML VIAL IV ONE (09:50)
[2023-04-29] MEDS ORDERED: fentaNYL (PF) 50 MCG/ML 2 ML AMP ONE (09:50)
[2023-04-29] MEDS ORDERED: MIDAZOLAM 2 MG/2 ML VIAL ONE (09:50)
[2023-04-29] MEDS ORDERED: TRANEXAMIC 1,000 MG/100ML-NACL PREMIX BAG ONE (09:50)
[2023-04-29] MEDS ORDERED: ROPIVACAINE 5 MG/ML 30 ML VIAL ONE (09:50)
[2023-04-29] MEDS ORDERED: LIDOCAINE 1% INJ 10MG/ML (20 ML MDV) ONE (09:50)
[2023-04-29] MEDS ORDERED: ceFAZolin 3,000 MG in SODIUM CHLORIDE 0.9% IRRIGATIO 3,000 ML IRRIGATION ONE (10:25)
[2023-04-29] MEDS ORDERED: LACTATED RINGERS 1,000 ML IV ONE (11:30)
--- NOTE | 2023-04-29 12:08 | XR ---
EXAMINATION TYPE: XR knee limited LT DATE OF EXAM: 04/29/2023 COMPARISON: NONE TECHNIQUE: Two views submitted HISTORY: Post op FINDINGS: There is a prosthetic knee in near anatomic alignment. There is soft tissue edema and soft tissue e mphysema compatible with recent surgery. IMPRESSION: 1. Postoperative change.
[2023-04-29] MEDS ORDERED: ROPIVACAINE 1,100 MG, SODIUM CHLORIDE 0.9% 500 ML 330 ML, EMPTY PAIN BALL 1 EACH MISCELLANE PRN ×2 (12:13)
--- NOTE | 2023-04-29 12:34 | OP ---
OPERATIVE REPORT DATE OF SERVICE : 04/29/2023 HOIST MECHANIC: Jeremiah Kaufman PA-C PREOPERATIVE DIAGNOSIS: Left knee osteoarthrosis. POSTOPERATIVE DIAGNOSIS: Left knee osteoarthrosis. OPERATION: Left total knee arthroplasty. ANESTHESIA: Spinal with sedation. ESTIMATED BLOOD LOSS: 100 mL. TOURNIQUET TIME: 44 minutes at 250 mmHg. COMPLICATIONS: None apparent. DRAINS: None. DISPOSITION: Postanesthesia care unit. INDICATIONS FOR PROCEDURE: Sarah is a very pleasant 67-year-old female with longstanding history of left knee pain. Her symptoms examination are consistent with advanced left knee osteoarthrosis. She has been through significant operative management up to this point. The treatment options were discussed, and she decided to go for the left total knee arthroplasty. Risks of procedure were discussed with her in detail. These risks include but are not limited to risk of infection, nerve damage, bleeding, pain, and a small risk of deep vein thrombosis which could lead to fatal pulmonary embolism. There is also small risk of loosening of the implant which could require revision operation. The patient understands these risks. All of her questions were answered to her satisfaction. Appropriate informed consent was obtained. DESCRIPTION OF PROCEDURE: The patient was identified in preoperative holding area. Surgical site was marked by both the patient and myself. She was given 2 g of Ancef IV for prophylactic purposes. She was then transported to the operative suite. She was placed supine on the operating room table. Spinal anesthetic was then administered, dosed per the anesthesia without apparent complication. An examination under anesthesia was then performed. The patient was 2 to 3 degrees shy of full extension. She had 100 degrees of flexion. Medial collateral ligament, lateral collateral ligament and posterior cruciate ligaments were stable. Tourniquet was then placed high on the left upper thigh well-padded in preparation for surgery. The patient's left lower extremity was then prepped and draped in the usual sterile fashion. Standard surgical pause undertaken to ensure that we were operating the correct site and that appropriate preoperative antibiotics were given. All staff were in agreement we proceeded. The outlines of the patella were marked with a surgical pen. A planned 12 cm vertical incision centered over the patella was marked with a surgical pen. Leg was then exsanguinated with an Esmarch dressing. The knee was then flexed, and the tourniquet was inflated to 250 mmHg. The total tourniquet time for the procedure was 44 minutes. Incision was then made with a 10-blade scalpel. Dissection was carried down sharply overlying fascia. Great care was taken to minimize the skin flaps. The knee was then exposed using a standard medial parapatellar approach. A small cuff of quadriceps tendon was then left for suturing. She was in a bit of varus preoperatively. A standard medial release was then made. Superficial medial collateral ligament was dissected off the bone around to the posterior aspect of the proximal tibia. The medial meniscus was then excised as well. The lateral meniscus was also released anteriorly. The leg was then externally rotated. The patella was everted. The knee was flexed. Retractors were then placed to protect the collateral ligaments. I then proceeded to remove the infrapatellar fat pad. This was excised sharply tangentially fibers of the patellar tendon. I then proceeded to remove the peripheral osteophytes. This was done with a rongeur. I then proceeded with the distal resection. She had near full extension. A planned 9 mm resection was done. The femoral canal was then entered in the midline of the femur approximately 10 mm anterior to the origin of posterior cruciate ligament. The reshma was then advanced down the center of the femur and placed intramedullary. Based on the preoperative radiographs, the angle between the anatomic and mechanical axis of the femur was approximately 4 to 5 degrees with a valgus angle. The distal femoral cutting guide was then set at 4 degrees for the right knee. The distal cutting guide was then advanced over the intramedullary reshma. This was seated firmly against the femur. I then as mentioned planned to take 9 mm off the distal femur. The cutting block was then secured onto the femur with pins. The jig was then removed. The distal cut was made through the slot of the block. The pins were removed. The distal cutting block was removed. The accuracy of the distal cuts was checked with 2 flat bars. I then proceeded with femoral sizing. Posterior referencing sizing guide was held firmly against the resected distal surface of the femur. The posterior condyles were resting on the posterior plane of the guide. The sizing guide was then placed on the anterior femur. The size was measured as a size 8. I then assessed for femoral rotation. The plan was for 3 degrees of external rotation. Three degrees of external rotation was placed onto the jig. These holes were then marked. I then confirmed the rotation by 3 separate methods. This was done using epicondylar axis as well as Whitesides line and posterior referencing. It was deemed that the external rotation was proper. I then went forward with placement of the femoral cutting block. This was placed over the previously placed pin holes. The Manolo wing was then placed on the anterior slots to ensure that we would not notch the anterior femur with the anterior femoral cut. I then proceeded with the anterior femoral cut. This was flush with the anterior cortex of the femur. The posterior cuts were made followed by the anterior chamfer cut, then the posterior chamfer cut. The cutting block was then removed. Throughout the resection, the collateral ligaments were protected with retractors. We then placed a trial size 8 femur. It was slightly wide but the narrow fit very nicely, and it fit flush with the distal end of the femur. The drill hole was then made. I then proceeded with the tibial cut. I planned for cruciate-retaining knee. The guide was placed and set for varus-valgus and for slope. I set for approximate 2 mm resection from the medial tibial plateau which was the lower side. Heavy alignment amount of resection with the cutting block was then pinned to the proximal tibia. The alignment reshma was removed and the proximal tibia was resected with a reciprocating saw. Again, this was done with retractors protecting the collateral ligaments as well as the posterior cruciate ligament. I then proceeded to evaluate the flexion extension gaps. A 10 mm block was then placed. The flexion extension gaps were equal. I then proceeded to resect the posterior osteophytes. She had very minimal posterior osteophytes. This was done using a curved osteotome. This resected the posterior osteophytes, and posterior capsular stripping was done off the posterior aspect of the femur at this time. The osteophytes were then removed. I then proceeded with resection of the patella. The thickness of the patella was measured using the caliper. The thickness was 22 mm. The thickness of the anticipated patellar dome was taken into account. Resection was then performed and confirmed to be in 4 quadrants using a caliper. Approximately 14 mm of bone remained after resection. A 29 x 8.5 standard patellar trial was then placed. The holes were drilled. The trial was then placed. I then proceeded with sizing tibial plate. A size D tibial plate fit very nicely. I then placed the trial femur, the tibial tray and patellar button. A 10 mm trial tibial insert was also placed. The components fit very nicely. She had full extension and flexion. The extension and flexion gaps were equal and stable to both varus and valgus stress. The patella tracked appropriately. The tibial tray rotation was marked with a Bovie. This was externally rotated properly. I then proceeded with tibial preparation. I first drilled the femoral holes and removed the femoral component. The tibial tray was then set for proper external rotation as well as medial and lateral placement of the tibia, this was then pinned into place. I then proceeded punching the keel. I then decided to proceed with cementing of all our components. The knee was thoroughly irrigated with sterile saline solution via pulse lavage. The lateral genicular artery was identified and cauterized. All blood was removed from the bone of the tibia, femur and patella with pulse lavage. I then proceeded with cementing. Two packs of antibiotic bone cement prepared on the back table by surgical brace maker. I then proceeded with cementing of the tibia first. Cement was impacted in the keel as well as deeply seated in the bone. A second coat cement was then placed. The tibia was then impacted into place. Excess cement was removed with [place]'s and Jokers. I then proceeded with cementing of the femoral component. The femoral component was also cemented using standard technique. Excess cement was removed. A 10 mm trial insert was then placed in the knee. It was brought into full extension with a constant axial load placed until the cement had hardened. The patellar component was then cemented. This was held firmly with compressive device until the cement had dried. When the cement had dried, the knee was taken out of extension. All excess cement was removed from around the prosthesis. I then trialed the knee with a 10 mm insert. Flexion-extension gaps were appropriate. I decided to go for the 10 mm medial congruent cross-linked cruciate-retaining tibial insert. Polyethylene was then placed on the tibial tray and locked into place. The knee was then reduced. The knee was again further irrigated with sterile saline solution with antibiotic added. The tourniquet was then deflated. Total tourniquet time for procedure was 44 minutes at 250 mmHg. Final components were Aurelio Persona size 8 narrow cruciate-retaining femoral component, a size D tibial tray, a 10 mm medial congruent polyethylene insert, and a 29 x 8.5 mm patella. I then proceeded with closure. Again, the knee was thoroughly irrigated. The quadriceps tendon and the medial retinaculum were reapproximated with #2 Ethibond suture. The extensor mechanism was then closed with a running #2 Quill suture. Subcutaneous tissues were closed with 2-0 Vicryl interrupted suture. The skin was closed with a running 3-0 Quill suture. A Dermabond was applied to the incision. Sterile compressive dressings were applied. All sponge and needle counts were deemed correct prior to closure. The patient tolerated the procedure without apparent complication. She was transferred to recovery room in stable condition. MMODL / IJN: [id number] /
[2023-04-29] MEDS: HYDROcodone/APAP 7.5-325MG 1 EACH TAB PO PRN ×2 (15:48→22:42)
--- NOTE | 2023-04-29 18:17 | P.ANPRN ---
Procedure Note - Anesthesia - Nerve Block Performed Left Adductor Canal Infusion Time Out Performed: Yes Date of Procedure: 04/29/23 Procedure Start Time: : Procedure Stop Time: : Location of Patient: PreOp Indication: Acute Post-Operative Pain, Requested by Surgeon Sedation Type: Sedate with meaningful contact maintained Preparation: Sterile Prep, Sterile Dressing Position: Supine Catheter: Indwelling Needle Types: Pajunk Needle Gauge: 21 Ultrasound used to visualize needle placement: Yes Ultrasound used to observe medication spread: Yes Blood Aspirated: No Pain Paresthesia on Injection Noted: No Resistance on Injection: Normal Image Stored and Saved: Yes Events: Uneventful and Well Tolerated (ropi .55 20cc plus dexamethasone 4mg)
--- NOTE | 2023-04-29 18:20 | P.ANPRN ---
Procedure Note - Anesthesia - Nerve Block Performed Left iPack Single Time Out Performed: Yes Date of Procedure: 04/29/33 Procedure Start Time: : Procedure Stop Time: :32 Location of Patient: PreOp Indication: Acute Post-Operative Pain, Requested by Surgeon Preparation: Sterile Prep Position: Supine Needle Gauge: 21 Ultrasound used to visualize needle placement: Yes Ultrasound used to observe medication spread: Yes Blood Aspirated: No Pain Paresthesia on Injection Noted: No Resistance on Injection: Normal Image Stored and Saved: Yes Events: Uneventful and Well Tolerated (ropi .5% 25 cc plus dexamethasone 4mg)
[2023-04-29] MEDS: ASPIRIN 81 MG PO SCH (20:00)
[2023-04-29] MEDS ORDERED: SENNOSIDES-DOCUSATE SODIUM 1 EACH TAB PO SCH (21:00)
[2023-04-30] MEDS: LACTATED RINGERS 1,000 ML IV SCH ×2 (02:11→04:58)
[2023-04-30] MEDS: HYDROcodone/APAP 7.5-325MG 1 EACH TAB PO PRN ×2 (05:09→11:57)
[2023-04-30 07:34] VITALS: BP 144/66; PULSE 73; RESP 17; TEMP 98.2
[2023-04-30] MEDS: ASPIRIN 81 MG PO SCH (09:05)
[2023-04-30 11:06] LABS: HCT 30.2 % (37.2-46.3); HGB 10.1 d/dL (12.0-15.0); MCH 31.5 pg (27.0-32.0); MCHC 33.4 d/dL (32.0-37.0); MCV 94.1 FL (80.0-97.0); Mean Platelet Volume 8.8 FL (9.5-12.2); NRBC Per 100 WBC 0 X 10*3/uL (0.00-0.01); Platelet Count 346 X 10*3/uL (140-440); RBC 3.21 X 10*6/uL (4.10-5.20); RDW 11.9 % (11.5-14.5); WBC 14.68 X 10*3/uL (4.50-10.00)
--- NOTE | 2023-04-30 11:16 | P.PN ---
Progress Note - Text 04/30/23 633am 67-year-old female status post total knee replacement by Dr. Tyson. Patient has an On-Q pump for postop pain control with the solution running at 8 mL an hour with a VAS of 3. Pain is predominantly located posteriorly. Dressing clean dry and intact. Plan to continue On-Q pump infusion
[2023-04-30 11:48] LABS: Basophils # (A) 0.03 X 10*3/uL (0.00-0.10); Basophils % (A) 0.2 %; Eosinophils # (A) 0.02 X 10*3/uL (0.04-0.35); Eosinophils % (A) 0.1 %; Lymphocytes % (A) 10.2 %; Monocytes # (A) 1.71 X 10*3/uL (0.20-1.00); Monocytes % (A) 11.6 %; Neutrophils # (A) 11.36 X 10*3/uL (1.80-7.70); Neutrophils % (A) 77.5 %
[2023-04-30] MEDS ORDERED: MULTIVITAMINS, THERA 1 EACH TAB PO SCH (12:00)
--- NOTE | 2023-04-30 13:25 | P.CONS ---
History of Present Illness - Reason for Consult Consult date: 04/30/23 - History of Present Illness This is a 67-year-old female with medical history of coronary artery disease, COPD, hypertension, hyperlipidemia, smoker about 10 cigarettes per day and marijuana use. Patient presents for planned total left knee arthroplasty and is evaluated today postoperative day #1. Currently reports that her pain is controlled with current oral medications. She has no chest pain or shortness of breath. Patient is to start daily for blood pressure currently running 140s over 60s however yesterday afternoon her blood pressure was lower side with a 110 systolic. Recommended to hold losartan for one more day and okay to resume on Wednesday this was discussed with the patient and she is agreeing. Patient can continue on her metoprolol. She is not had a bowel movement yet but is passing gas. REVIEW OF SYSTEMS: CONSTITUTIONAL: No fever, no malaise, no fatigue. HEENT: No recent visual problems or hearing problems. Denied any sore throat. CARDIOVASCULAR: No chest pain, orthopnea, PND, no palpitations, no syncope. PULMONARY: No shortness of breath, no cough, no hemoptysis. GASTROINTESTINAL: No diarrhea, no nausea, no vomiting, no abdominal pain. NEUROLOGICAL: No headaches, no weakness, no numbness. HEMATOLOGICAL: Denies any bleeding or petechiae. GENITOURINARY: Denies any burning micturition, frequency, or urgency. MUSCULOSKELETAL/RHEUMATOLOGICAL: Denies any joint pain, swelling, or any muscle pain. ENDOCRINE: Denies any polyuria or polydipsia. The rest of the 14-point review of systems is negative. PHYSICAL EXAMINATION: GENERAL: The patient is alert and oriented x3, not in any acute distress. Well developed, well nourished. HEENT: Pupils are round and equally reacting to light. EOMI. No scleral icterus. No conjunctival pallor. Normocephalic, atraumatic. No pharyngeal erythema. No thyromegaly. CARDIOVASCULAR: S1 and S2 present. No murmurs, rubs, or gallops. PULMONARY: Chest is clear to auscultation, no wheezing or crackles. ABDOMEN: Soft, nontender, nondistended, normoactive bowel sounds. No palpable organomegaly. MUSCULOSKELETAL: No joint swelling or deformity. Post surgical left knee. No swelling. +2 pulses. EXTREMITIES: No cyanosis, clubbing, or pedal edema. NEUROLOGICAL: Gross neurological examination did not reveal any focal deficits. SKIN: No rashes. Assessment Osteoarthritis postoperative day #1 total left knee arthroplasty Hypertension currently controlled on losartan daily recommend to hold and resume on Wednesday05/02/23 Hyperlipidemia continue on crestor Coronary artery disease COPD with no acute exacerbation on room air Chronic and ongoing nicotine use counseled on smoking cessation. Marijuana use, edibles. GI prophylaxis as per primary aspirin 81 mg BID for 30 days. Full Code Plan Continue home medications with exception of losartan as above hold one more day and resume on Wednesday. Continue aspirin 81 mg BID for 30 days as recommended by orthopedics and afterwards resume aspirin 81 mg daily. Discussed smoking cessation to promote wound healing patient is understanding and agreeing. Patient cleared medically for DC home discussed to continue with incentive spirometer 10 x an hour while awake, patient recommended to follow up with PCP Dr. Kristen Rvier in 2 to 3 days. Patient will be discharged with home PT. Thank you for this consultation The impression and plan of care has been dictated by Maeve Orantes, Nurse Practitioner as directed. Dr. Stephanie MD I have performed a history and physical examination and medical decision making of this patient, discussed the same with the dictator, and agree with the dictators assessment and plan as written, documented as a scribe. Based on total visit time, I have performed more than 50% of this visit. Past Medical History Past Medical History: Coronary Artery Disease (CAD), COPD, Hyperlipidemia, Hypertension, Osteoarthritis (OA) History of Any Multi-Drug Resistant Organisms: None Reported Past Surgical History: Adenoidectomy, Appendectomy, Cholecystectomy, Heart Catheterization, Hysterectomy, Orthopedic Surgery, Tonsillectomy Additional Past Surgical History / Comment(s): surg. to repair right foot fx., right arm surg, total hysterectomy, right knee replaced October 2022 Past Anesthesia/Blood Transfusion Reactions: Previous Problems w/ Anesthesia Additional Past Anesthesia/Blood Transfusion Reaction / Comm: BP became low after hyst. years ago Past Psychological History: No Psychological Hx Reported Smoking Status: Current every day smoker Past Alcohol Use History: Occasional Additional Past Alcohol Use History / Comment(s): down to 2-3 cigs/day from 1ppd for 30 yrs., couple drinks per week Past Drug Use History: Marijuana Additional Drug Use History / Comment(s): edibles @times - Past Family History Mother Family Medical History: No Reported History Medications and Allergies Home Medications Medication Instructions Recorded Confirmed Type Aspirin 81 mg PO DAILY 11/04/22 04/27/23 History Losartan Potassium [Cozaar] 50 mg PO DAILY 11/04/22 04/27/23 History Metoprolol Tartrate [Lopressor] 50 mg PO BID 11/04/22 04/27/23 History Rosuvastatin [Crestor] 10 mg PO DAILY 11/04/22 04/27/23 History Naproxen Sodium [Aleve] 220 mg PO BID PRN 04/27/23 04/27/23 History Cefdinir 300 mg PO Q12HR #10 cap 04/29/23 Rx Aspirin [Adult Low Dose Aspirin EC] 81 mg PO BID #60 tab 04/30/23 Rx Docusate [Colace] 100 mg PO BID #60 capsule 04/30/23 Rx HYDROcodone/APAP 7.5-325MG [[place] 1 - 2 each PO Q6HR PRN #42 tab 04/30/23 Rx 7.5-325] Multivitamins, Thera [Multivitamin 1 each PO DAILY@1200 tab 04/30/23 Rx (formulary)] Ondansetron [Zofran] 4 mg PO Q8HR PRN #21 tab 04/30/23 Rx Allergies Allergy/AdvReac Type Severity Reaction Status Date / Time No Known Allergies Allergy Verified 04/29/23 07:49 Physical Exam Vitals: Vital Signs Temp Pulse Resp BP Pulse Ox 04/30/23 07:13 98.2 F 73 17 144/66 98 04/30/23 01:18 98.4 F 80 18 134/69 96 04/29/23 19:30 98.1 F 73 18 115/65 96 04/29/23 14:00 64 16 117/78 97 04/29/23 13:48 98.0 F 71 18 144/82 97 04/29/23 13:25 68 16 120/65 97 04/29/23 13:03 70 16 129/71 98 04/29/23 12:47 68 16 108/65 98 04/29/23 12:30 67 16 118/66 95 04/29/23 12:15 68 18 123/72 95 04/29/23 12:00 72 18 112/71 95 04/29/23 11:48 97.1 F L 88 18 114/73 95 Intake and Output 04/29/23 04/30/23 04/30/23 22:59 06:59 14:59 Other: # Voids 0 3 Results CBC & Chem 7: 04/30/23 07:06 04/29/23 08:10 Assessment and Plan Time with Patient: Less than 30
--- NOTE | 2023-04-30 15:04 | P.DS ---
Providers Expected date of discharge: 04/30/23 Attending physician: Stanley Tyson Consults: 04/29/23 09:05 Consult Physician Routine Consulting Provider: Popeye Cuevas Consult Reason/Comments: post op medical management Do you want consulting provider notified?: Yes Primary care physician: Kristen River - Discharge Diagnosis(es) (1) Osteoarthritis of left knee Patient was admitted to the OR on 04/29/23 to undergo a left total knee arthroplasty. She had failed conservative measures as an outpatient and desired to proceed with elective surgery after given informed consent. She underwent the above procedure which she tolerated well without complication. Postoperative hospital course has remained without complication. On day of discharge she is afebrile, vital signs stable, labs within acceptable ranges, tolerating by mouth meds and diet, voiding without difficulty, positive flatus, denies abdominal pain or calf pain, pain is controlled on oral pain medication and has no new complaints. Wound is benign, neurovascular status is intact, calf is soft and nontender, abdomen soft and nontender. Review of systems is negative for numbness, tingling, fever, chills, chest pain, shortness of breath, nausea, vomiting, dizziness, headaches, slurred speech or other. Status: Acute Priority: Medium Procedures: Left TKA Patient Condition at Discharge: Good Plan - Discharge Summary Discharge Rx Participant: Yes New Discharge Prescriptions: New Cefdinir 300 mg PO Q12HR #10 cap Multivitamins, Thera [Multivitamin (formulary)] 1 each PO DAILY@1200 tab Docusate [Colace] 100 mg PO BID #60 capsule Ondansetron [Zofran] 4 mg PO Q8HR PRN #21 tab PRN Reason: Nausea Aspirin [Adult Low Dose Aspirin EC] 81 mg PO BID #60 tab HYDROcodone/APAP 7.5-325MG [[place] 7.5-325] 1 - 2 each PO Q6HR PRN #42 tab PRN Reason: Pain Continue Rosuvastatin [Crestor] 10 mg PO DAILY Losartan Potassium [Cozaar] 50 mg PO DAILY Metoprolol Tartrate [Lopressor] 50 mg PO BID No Action Aspirin 81 mg PO DAILY Naproxen Sodium [Aleve] 220 mg PO BID PRN PRN Reason: Pain Discharge Medication List Aspirin 81 mg PO DAILY 11/04/22 [History] Losartan Potassium [Cozaar] 50 mg PO DAILY 11/04/22 [History] Metoprolol Tartrate [Lopressor] 50 mg PO BID 11/04/22 [History] Rosuvastatin [Crestor] 10 mg PO DAILY 11/04/22 [History] Naproxen Sodium [Aleve] 220 mg PO BID PRN 04/27/23 [History] Cefdinir 300 mg PO Q12HR #10 cap 04/29/23 [Rx] Aspirin [Adult Low Dose Aspirin EC] 81 mg PO BID #60 tab 04/30/23 [Rx] Docusate [Colace] 100 mg PO BID #60 capsule 04/30/23 [Rx] HYDROcodone/APAP 7.5-325MG [[place] 7.5-325] 1 - 2 each PO Q6HR PRN #42 tab 04/30/23 [Rx] Multivitamins, Thera [Multivitamin (formulary)] 1 each PO DAILY@1200 tab 04/30/23 [Rx] Ondansetron [Zofran] 4 mg PO Q8HR PRN #21 tab 04/30/23 [Rx] Follow up Appointment(s)/Referral(s): [facility] [NON[facility]STA[facility]] - 1-2 Days ([facility] will call you to schedule your in home physical therapy visits. ) Kristen River MD [Primary Care Provider] - 1 Week (Office is closed at time of discharge. Please call for follow-up appointment.) Stanley Tyson MD [STAFF PHYSICIAN] - 05/11/23 10:05 am Patient Instructions/Handouts: *Surgery [facility] - On-Q Pain Pump Discharge Instructions, Osteoarthritis (DC), Precautions after Total Joint Replacement Surgery (DC), Knee Replacement (DC) Discharge Disposition: HOME WITH HOME HEALTH SERVICES
== END 2023-04-30 13:35 | disposition home health service (06) ==
LOC: OR 07:25 → 4SSUR 13:44 → OR 04-30 13:35
PROVIDERS: ATTEND Orthopaedic Surgery Sports Medicine
DX: M17.12 Unilateral primary osteoarthritis, left knee (principal); I10 Essential (primary) hypertension; E78.5 Hyperlipidemia, unspecified; I25.10 Atherosclerotic heart disease of native coronary artery without angina pectoris; J44.9 Chronic obstructive pulmonary disease, unspecified; F12.90 Cannabis use, unspecified, uncomplicated; F17.290 Nicotine dependence, other tobacco product, uncomplicated; F10.90 Alcohol use, unspecified, uncomplicated; Z98.890 Other specified postprocedural states; Z79.82 Long term (current) use of aspirin; Z79.811 Long term (current) use of aromatase inhibitors; Z79.891 Long term (current) use of opiate analgesic; Z79.899 Other long term (current) drug therapy; G89.18 Other acute postprocedural pain
CPT/HCPCS: 27447; 97161; 64999; 64448; 80048; 85025; 73560; C1776; C1713; C1751; J2250; J1100; J0690 ×3; J2405; J2795

== ENCOUNTER 2024-07-24 11:48 | Inpatient (IN) | payer MEDICARE ==
--- NOTE | 2024-07-24 12:27 | ED ---
General Adult HPI - General Chief complaint: Shortness of Breath Stated complaint: SOB Time Seen by Provider: 07/24/24 12:00 Source: patient, EMS, RN notes reviewed Mode of arrival: EMS Limitations: no limitations - History of Present Illness Initial comments: Patient is a 68-year-old female present to the emergency department with concerns with difficulty breathing. Onset of symptoms was around a week ago. Patient was exposed to influenza A. Patient has had extreme fatigue. Patient gets very short of breath and is only able to walk around 10 feet. No fever. Mild cough, dry. No calf pain or leg swelling - Related Data Home Medications Medication Instructions Recorded Confirmed Losartan Potassium [Cozaar] 50 mg PO DAILY 11/04/22 07/24/24 Rosuvastatin [Crestor] 10 mg PO DAILY 11/04/22 07/24/24 Aspirin [Adult Low Dose Aspirin EC] 81 mg PO HS 07/24/24 07/24/24 Metoprolol Tartrate [Lopressor] 50 mg PO BID 07/24/24 07/24/24 Allergies Allergy/AdvReac Type Severity Reaction Status Date / Time No Known Allergies Allergy Verified 07/24/24 12:22 Review of Systems ROS Statement: Those systems with pertinent positive or pertinent negative responses have been documented in the HPI. ROS Other: All systems not noted in ROS Statement are negative. Constitutional: Denies: fever Respiratory: Reports: as per HPI, dyspnea Cardiovascular: Denies: chest pain Endocrine: Reports: fatigue Gastrointestinal: Denies: abdominal pain Musculoskeletal: Denies: back pain Past Medical History Past Medical History: Coronary Artery Disease (CAD), COPD, Hyperlipidemia, Hypertension, Osteoarthritis (OA) History of Any Multi-Drug Resistant Organisms: None Reported Past Surgical History: Adenoidectomy, Appendectomy, Cholecystectomy, Heart Catheterization, Hysterectomy, Orthopedic Surgery, Tonsillectomy Additional Past Surgical History / Comment(s): surg. to repair right foot fx., right arm srug, total hysterectomy Past Anesthesia/Blood Transfusion Reactions: Previous Problems w/ Anesthesia Additional Past Anesthesia/Blood Transfusion Reaction / Comment(s): BP became low after hyst. years ago Past Psychological History: No Psychological Hx Reported Smoking Status: Former smoker Past Alcohol Use History: Occasional Past Drug Use History: Marijuana - Past Family History Mother Family Medical History: No Reported History General Exam Limitations: no limitations General appearance: alert, in no apparent distress Head exam: Present: normocephalic Eye exam: Present: normal appearance Neck exam: Present: normal inspection Respiratory exam: Present: wheezes, decreased breath sounds Cardiovascular Exam: Present: regular rate, normal rhythm GI/Abdominal exam: Present: soft. Absent: tenderness Extremities exam: Present: normal inspection. Absent: pedal edema, calf tenderness Neurological exam: Present: alert Psychiatric exam: Present: normal affect, normal mood Skin exam: Present: normal color Course Vital Signs 07/24/24 07/24/24 07/24/24 11:55 13:27 13:33 Temperature 98.4 F Pulse Rate 83 72 70 Respiratory 28 H 14 Rate Blood Pressure 139/83 120/76 O2 Sat by Pulse 97 99 Oximetry 07/24/24 07/24/24 13:41 14:16 Temperature Pulse Rate 72 68 Respiratory 14 Rate Blood Pressure 124/66 O2 Sat by Pulse 99 Oximetry EKG Findings - EKG Results: EKG: interpreted by SILVAD, sinus rhythm, normal axis, normal QRS, normal ST/T Medical Decision Making - Medical Decision Making Was pt. sent in by a medical professional or institution (, PA, ORE DIGGER, urgent care, hospital, or [facility]...) When possible be specific @ -No Did you speak to anyone other than the patient for history (EMS, parent, family, police, friend...)? What history was obtained from this source @ -No Did you review nursing and triage notes (agree or disagree)? Why? @ -I reviewed and agree with nursing and triage notes Were old charts reviewed (outside hosp., previous admission, EMS record, old EKG, old radiological studies, urgent care reports/EKG's, [facility] records)? Report findings @ -No old charts were reviewed Differential Diagnosis (chest pain, altered mental status, abdominal pain women, abdominal pain men, vaginal bleeding, weakness, fever, dyspnea, syncope, headache, dizziness, GI bleed, back pain, seizure, CVA, palpatations, mental health, musculoskeletal)? @ -Differential Dyspnea: Coronary syndrome, arrhythmia, tamponade, asthma, COPD, pulmonary embolism, pneumonia, pneumothorax, pulmonary effusion, anaphylaxis, diabetic ketoacidosis, flailed chest, pulmonary contusion, diaphragmatic rupture, anemia, neuromuscular, this is not meant to be an all-inclusive list. EKG interpreted by me (3pts min.). @ -As above X-rays interpreted by me (1pt min.). @ -Chest x-ray does not reveal acute abnormality. COPD changes CT interpreted by me (1pt min.). @ -None done U/S interpreted by me (1pt. min.). @ -None done What testing was considered but not performed or refused? (CT, X-rays, U/S, labs)? Why? @ -None What meds were considered but not given or refused? Why? @ -None Did you discuss the management of the patient with other professionals (professionals i.e. , PA, ORE DIGGER, lab, RT, psych nurse, group social worker, batcher operator, teacher, fare enforcement officer, nurse case manager)? Give summary @ -Case was discussed with Dr. Cuevas who will admit covering Dr. River Was smoking cessation discussed for >3mins.? @ -No Was critical care preformed (if so, how long)? @ -No Were there social determinants of health that impacted care today? How? (Homelessness, low income, unemployed, alcoholism, drug addiction, transportation, low edu. Level, literacy, decrease access to med. care, group home, rehab)? @ -No Was there de-escalation of care discussed even if they declined (Discuss DNR or withdrawal of care, Hospice)? DNR status @ -No What co-morbidities impacted this encounter? (DM, HTN, Smoking, COPD, CAD, Cancer, CVA, ARF, Chemo, Hep., AIDS, mental health diagnosis, sleep apnea, morbid obesity)? @ -History of COPD Was patient admitted / discharged? Hospital course, mention meds given and route, prescriptions, significant lab abnormalities, going to OR and other pertinent info. @ -Patient presents with dyspnea, especially with exertion with limited ambulation. Recent influenza exposure. Patient is tachypneic on arrival. Evaluation otherwise unremarkable. Patient to be admitted, admission orders written. Patient reevaluated and updated. Undiagnosed new problem with uncertain prognosis? @ -No Drug Therapy requiring intensive monitoring for toxicity (Heparin, Nitro, Insulin, Cardizem)? @ -No Were any procedures done? @ -No Diagnosis/symptom? @ -COPD Acute, or Chronic, or Acute on Chronic? @ -Acute Uncomplicated (without systemic symptoms) or Complicated (systemic symptoms)? @ -Default Side effects of treatment? @ -No Exacerbation, Progression, or Severe Exacerbation? @ -No Poses a threat to life or bodily function? How? (Chest pain, [place], GA, pneumonia, PE, COPD, DKA, ARF, appy, cholecystitis, CVA, Diverticulitis, Homicidal, Suicidal, threat to staff... and all critical care pts) @ -Threat to cardiac function - Lab Data Result diagrams: 07/24/24 12:32 07/24/24 12:32 Lab Results 07/24/24 07/24/24 07/24/24 Range/Units 12:32 12:32 12:32 WBC 7.4 (3.8-10.6) k/uL RBC 2.46 L (3.80-5.40) m/uL Hgb 8.5 L (11.4-16.0) gm/dL Hct 22.6 L (34.0-46.0) % MCV 92.1 (80.0-100.0) fL MCH 34.7 (25.0-35.0) pg MCHC 37.6 H (31.0-37.0) g/dL RDW 12.1 (11.5-15.5) % Plt Count 249 (150-450) k/uL MPV 7.6 Neutrophils % 72 % Lymphocytes % 18 % Monocytes % 7 % Eosinophils % 2 % Basophils % 0 % Neutrophils # 5.3 (1.3-7.7) k/uL Lymphocytes # 1.3 (1.0-4.8) k/uL Monocytes # 0.5 (0-1.0) k/uL Eosinophils # 0.1 (0-0.7) k/uL Basophils # 0.0 (0-0.2) k/uL PT 10.4 (10.0-12.5) sec INR 0.9 (<1.2) APTT 22.2 (22.0-30.0) sec Sodium 133 L (137-145) mmol/L Potassium 4.6 (3.5-5.1) mmol/L Chloride 100 (98-107) mmol/L Carbon Dioxide 22 (22-30) mmol/L Anion Gap 11 mmol/L BUN 13 (7-17) mg/dL Creatinine 0.65 (0.52-1.04) mg/dL Est GFR (CKD-EPI)AfAm >90 (>60 ml/min/1.73 sqM) Est GFR (CKD-EPI)NonAf >90 (>60 ml/min/1.73 sqM) Glucose 110 H (74-99) mg/dL Plasma Lactic Acid Kurt (0.7-2.0) mmol/L Calcium 9.7 (8.4-10.2) mg/dL Magnesium 2.1 (1.6-2.3) mg/dL Total Bilirubin 0.7 (0.2-1.3) mg/dL AST 39 H (14-36) U/L ALT 42 H (4-34) U/L Alkaline Phosphatase 66 (38-126) U/L Troponin I (0.000-0.034) ng/mL NT-Pro-B Natriuret Pep 134 pg/mL Total Protein 7.6 (6.3-8.2) g/dL Albumin 4.9 (3.5-5.0) g/dL Influenza Type A (PCR) (Not Detectd) Influenza Type B (PCR) (Not Detectd) RSV (PCR) (Not Detectd) SARS-CoV-2 (PCR) (Not Detectd) 07/24/24 07/24/24 07/24/24 Range/Units 12:32 12:32 12:32 WBC (3.8-10.6) k/uL RBC (3.80-5.40) m/uL Hgb (11.4-16.0) gm/dL Hct (34.0-46.0) % MCV (80.0-100.0) fL MCH (25.0-35.0) pg MCHC (31.0-37.0) g/dL RDW (11.5-15.5) % Plt Count (150-450) k/uL MPV Neutrophils % % Lymphocytes % % Monocytes % % Eosinophils % % Basophils % % Neutrophils # (1.3-7.7) k/uL Lymphocytes # (1.0-4.8) k/uL Monocytes # (0-1.0) k/uL Eosinophils # (0-0.7) k/uL Basophils # (0-0.2) k/uL PT (10.0-12.5) sec INR (<1.2) APTT (22.0-30.0) sec Sodium (137-145) mmol/L Potassium (3.5-5.1) mmol/L Chloride (98-107) mmol/L Carbon Dioxide (22-30) mmol/L Anion Gap mmol/L BUN (7-17) mg/dL Creatinine (0.52-1.04) mg/dL Est GFR (CKD-EPI)AfAm (>60 ml/min/1.73 sqM) Est GFR (CKD-EPI)NonAf (>60 ml/min/1.73 sqM) Glucose (74-99) mg/dL Plasma Lactic Acid Kurt 1.9 (0.7-2.0) mmol/L Calcium (8.4-10.2) mg/dL Magnesium (1.6-2.3) mg/dL Total Bilirubin (0.2-1.3) mg/dL AST (14-36) U/L ALT (4-34) U/L Alkaline Phosphatase (38-126) U/L Troponin I <0.012 (0.000-0.034) ng/mL NT-Pro-B Natriuret Pep pg/mL Total Protein (6.3-8.2) g/dL Albumin (3.5-5.0) g/dL Influenza Type A (PCR) Not Detected (Not Detectd) Influenza Type B (PCR) Not Detected (Not Detectd) RSV (PCR) Not Detected (Not Detectd) SARS-CoV-2 (PCR) Not Detected (Not Detectd) Disposition Clinical Impression: Acute exacerbation of chronic obstructive pulmonary disease Disposition: ADMITTED IP TO THIS HOSP Is patient prescribed a controlled substance at d/c from ED?: No Referrals: Kristen River MD [Primary Care Provider] - 1-2 days Time of Disposition: 14:47
[2024-07-24 12:46] LABS: Basophils % (A) 0 %; Eosinophils # (A) 0.1 k/uL (0-0.7); Eosinophils % (A) 2 %; HCT 22.6 % (34.0-46.0); HGB 8.5 gm/dL (11.4-16.0); Lymphocytes # (A) 1.3 k/uL (1.0-4.8); Lymphocytes % (A) 18 %; MCH 34.7 pg (25.0-35.0); MCHC 37.6 g/dL (31.0-37.0); MCV 92.1 fL (80.0-100.0); Mean Platelet Volume 7.6; Monocytes # (A) 0.5 k/uL (0-1.0); Monocytes % (A) 7 %; Neutrophils # (A) 5.3 k/uL (1.3-7.7); Neutrophils % (A) 72 %; Platelet Count 249 k/uL (150-450); RBC 2.46 m/uL (3.80-5.40); RDW 12.1 % (11.5-15.5); WBC 7.4 k/uL (3.8-10.6)
--- NOTE | 2024-07-24 12:57 | XR ---
EXAMINATION TYPE: XR chest 2V DATE OF EXAM: 07/24/2024 12:52 PM COMPARISON: Chest radiographs 09/11/2013 TECHNIQUE: XR chest 2V Frontal and lateral views of the chest. CLINICAL INDICATION:Female, 68 years old with history of difficulty breathing; FINDINGS: Lungs/Pleura: There is flattening of the diaphragm with increased lucency of the lungs. No evidence o f pneumothorax, pleural effusion or focal consolidation. Biapical pleural-parenchymal scarring. Pulmonary vascularity: Unremarkable. Heart/mediastinum: Cardiomediastinal silhouette is unremarkable. Atherosclerotic calcifications are seen in the aorta. Musculoskeletal: Multiple level degenerative disc disease changes seen throughout the spine. IMPRESSION: 1. No acute cardiopulmonary disease process. 2. COPD changes. [facility], , 07/24/2024 12:54 PM
[2024-07-24 12:58] LABS: ALT 42 U/L (4-34); AST 39 U/L (14-36); African American GFR (CKD) >90 (>60 ml/min/1.73 sqM); Albumin 4.9 g/dL (3.5-5.0); Alkaline Phosphatase 66 U/L (38-126); Anion Gap 11 mmol/L; Blood Urea Nitrogen 13 mg/dL (7-17); Calcium 9.7 mg/dL (8.4-10.2); Carbon Dioxide 22 mmol/L (22-30); Chloride 100 mmol/L (98-107); Glucose 110 mg/dL (74-99); Magnesium 2.1 mg/dL (1.6-2.3); Non-African American GFR(CKD) >90 (>60 ml/min/1.73 sqM); Potassium 4.6 mmol/L (3.5-5.1); Sodium 133 mmol/L (137-145); Total Bilirubin 0.7 mg/dL (0.2-1.3); Total Protein 7.6 g/dL (6.3-8.2)
[2024-07-24 13:05] LABS: NT-Pro-B-Type Natriuretic Pept 134 pg/mL
[2024-07-24] MEDS: methylPREDNISolone SOD SUCCI 125 MG/2 ML VIAL IV STA (13:06)
[2024-07-24 13:07] LABS: INR 0.9 (<1.2); Partial Thromboplastin Time 22.2 sec (22.0-30.0); Prothrombin Time 10.4 sec (10.0-12.5)
[2024-07-24 13:24] LABS: Influenza A Not Detected (Not Detectd); Influenza B Not Detected (Not Detectd); RSV Not Detected (Not Detectd)
[2024-07-24] MEDS: IPRATROPIUM-ALBUTEROL 3 ML NEB INHALATION STA (13:32)
[2024-07-24] MEDS ORDERED: NALOXONE 0.4 MG/ML 1 ML VIAL IVP PRN (14:48)
[2024-07-24] MEDS: methylPREDNISolone SOD SUCCI 125 MG/2 ML VIAL IV SCH (18:08)
[2024-07-24] MEDS: IPRATROPIUM-ALBUTEROL 3 ML NEB INHALATION SCH (18:17)
[2024-07-24] MEDS: METOPROLOL TARTRATE 50 MG TAB PO SCH (21:05)
[2024-07-24] MEDS: ASPIRIN 81 MG PO SCH (21:05)
[2024-07-24] MEDS: OSELTAMIVIR 75 MG CAP PO SCH (21:26)
[2024-07-24] MEDS: ACETAMINOPHEN TAB 325 MG TAB PO PRN (23:20)
--- NOTE | 2024-07-25 00:10 | HP ---
HISTORY AND PHYSICAL CHIEF COMPLAINT: Shortness of breath and feeling tired and weak, and cough and sputum. HISTORY OF PRESENT ILLNESS: This is a 68-year-old woman with a past medical history of multiple medical problems including COPD, CAD, was complaining of shortness of breath and cough for the past few days. The patient is exposed to flu by 2 granddaughters apparently. The patient had cough and some minimal sputum. The patient is feeling so tired and weak and admitted for further evaluation and treatment. Flu test is negative, but I would recommend empiric therapy with Tamiflu. PAST MEDICAL HISTORY: Reviewed include COPD, CAD. Rest of the history and rest of the chart is also reviewed. HOME MEDICATIONS: Reviewed include metoprolol. Dose and rest of medications reviewed. ALLERGIES: None. FAMILY HISTORY: No history of heart disease or strokes in the family. SOCIAL HISTORY: Previous history of smoking. REVIEW OF SYSTEMS: A 14-point review of systems is negative except as mentioned earlier. PHYSICAL EXAMINATION: VITAL SIGNS: Pulse is 68, blood pressure 124/60, respirations 14. HEENT: Conjunctivae normal. NECK: No JVD. CARDIOVASCULAR: S1, S2. RESPIRATIONS: Breath sounds diminished at the bases. A few scattered rhonchi and crackles. ABDOMEN: Soft. NERVOUS SYSTEM: Nonfocal. LABORATORY DATA: Hemoglobin 8.5. ASSESSMENT: 1. Chronic obstructive pulmonary disease acute exacerbation with acute purulent tracheobronchitis. 2. Possible influenza. 3. Coronary artery disease. 4. Hypertension. 5. Hyperlipidemia. 6. Multiple medical issues. RECOMMENDATIONS AND DISCUSSION: This is a 68-year-old woman, who presented with multiple complex medical issues, we will monitor the patient closely. I would recommend bronchodilators and steroids and as well as Tamiflu empirically. Resume the home medications. Guarded prognosis because of multiple complex medical issues. Further recommendations to follow. MMODL / IJN: [id number] /
[2024-07-25] MEDS: IPRATROPIUM-ALBUTEROL 3 ML NEB INHALATION PRN (05:30)
[2024-07-25] MEDS: LOSARTAN 50 MG TAB PO SCH (10:06)
[2024-07-25] MEDS: ATORVASTATIN 20 MG TAB PO SCH (10:06)
[2024-07-25 14:41] LABS: Basophils % (A) 0 %; Eosinophils % (A) 0 %; HCT 37.4 % (34.0-46.0); Lymphocytes # (A) 1.3 k/uL (1.0-4.8); Lymphocytes % (A) 11 %; MCH 30.4 pg (25.0-35.0); MCHC 32.6 g/dL (31.0-37.0); MCV 93.5 fL (80.0-100.0); Mean Platelet Volume 6.8; Monocytes # (A) 0.3 k/uL (0-1.0); Monocytes % (A) 3 %; Neutrophils # (A) 10.1 k/uL (1.3-7.7); Neutrophils % (A) 86 %; Platelet Count 404 k/uL (150-450); WBC 11.7 k/uL (3.8-10.6)
[2024-07-25] MEDS: SODIUM CHLORIDE 0.9% 1,000 ML IV SCH (14:59)
[2024-07-25 15:03] LABS: HGB 12.2 gm/dL (11.4-16.0)
--- NOTE | 2024-07-25 19:34 | P.CNPUL ---
History of Present Illness Consult date: 07/25/24 Reason for consult: dyspnea, COPD History of present illness: This this is a 68-year-old female patient, chronic smoker, presented to the hospital because of increased dyspnea, cough, congestion and wheezing. She was exposed to influenza A from a family member. The patient tested negative for influenza A and she was started on Tamiflu empirically. Chest x-ray completed shows no acute abnormalities other than some background COPD. No pleurisy. No hemoptysis. No swelling lower extremities. The white cell count is 11 with a hemoglobin 12.2 and a platelet count of 404. Electrolytes are all within normal limits. Troponins are negative. Started on bronchodilators and steroids. She does not utilize any form of respiratory medications on outpatient basis. Does not utilize home O2. She smokes 1 pack of cigarettes a day. Review of Systems Eyes: denies as per HPI, denies blurred vision, denies bulging eye, denies decreased vision, denies diplopia, denies discharge, denies dry eye, denies irritation, denies itching, denies pain, denies photophobia, denies loss of peripheral vision, denies loss of vision, denies tunnel vision/blind spots Ears: deny: decreased hearing, ear discharge, earache, tinnitus Ears, nose, mouth and throat: Reports as per HPI Breasts: absent: as per HPI, change in shape, gynecomastia, masses, nipple discharge, pain, skin changes, swelling Cardiovascular: Reports as per HPI, Reports decreased exercise tolerance, Reports dyspnea on exertion Respiratory: Reports cough, Reports dyspnea, Reports wheezing Gastrointestinal: Reports as per HPI Genitourinary: Reports as per HPI Menstruation: Reports as per HPI Musculoskeletal: Reports as per HPI Musculoskeletal: absent: ankle pain, ankle stiffness, ankle swelling, as per HPI, elbow pain, elbow stiffness, elbow swelling, foot pain, foot stiffness, foot swelling, hand pain, hand stiffness, hand swelling, hip pain, hip stiffness, hip swelling, knee pain, knee stiffness, knee swelling, shoulder pain, shoulder stiffness, shoulder swelling, wrist pain, wrist stiffness, wrist swelling Integumentary: Reports as per HPI Neurological: Reports as per HPI Psychiatric: Reports as per HPI Endocrine: Reports as per HPI Hematologic/Lymphatic: Reports as per HPI Allergic/Immunologic: Reports as per HPI Past Medical History Past Medical History: Coronary Artery Disease (CAD), COPD, Hyperlipidemia, Hypertension, Osteoarthritis (OA) History of Any Multi-Drug Resistant Organisms: None Reported Past Surgical History: Adenoidectomy, Appendectomy, Cholecystectomy, Heart Catheterization, Hysterectomy, Orthopedic Surgery, Tonsillectomy Additional Past Surgical History / Comment(s): surg. to repair right foot fx., right arm srug, total hysterectomy Past Anesthesia/Blood Transfusion Reactions: Previous Problems w/ Anesthesia Additional Past Anesthesia/Blood Transfusion Reaction / Comment(s): BP became low after hyst. years ago Smoking Status: Former smoker - Past Family History Mother Family Medical History: No Reported History Medications and Allergies Home Medications Medication Instructions Recorded Confirmed Type Losartan Potassium [Cozaar] 50 mg PO DAILY 11/04/22 07/24/24 History Rosuvastatin [Crestor] 10 mg PO DAILY 11/04/22 07/24/24 History Aspirin [Adult Low Dose Aspirin EC] 81 mg PO HS 07/24/24 07/24/24 History Metoprolol Tartrate [Lopressor] 50 mg PO BID 07/24/24 07/24/24 History Allergies Allergy/AdvReac Type Severity Reaction Status Date / Time No Known Allergies Allergy Verified 07/24/24 12:22 Physical Exam Vitals: Vital Signs Temp Pulse Pulse Resp BP Pulse Ox 07/25/24 15:19 68 07/25/24 15:09 68 07/25/24 15:00 98.4 F 86 17 102/63 97 07/25/24 11:43 72 07/25/24 11:35 77 07/25/24 07:42 69 07/25/24 07:40 94 L 07/25/24 07:33 76 07/25/24 07:00 97.9 F 78 17 108/56 98 07/25/24 05:41 69 07/25/24 05:30 68 07/25/24 03:50 67 18 109/61 95 07/24/24 21:04 98.6 F 90 22 112/55 96 07/24/24 20:57 72 07/24/24 20:44 71 07/24/24 18:32 70 Intake and Output 07/25/24 07/25/24 07/25/24 06:59 14:59 22:59 Other: # Voids 1 2 Weight 61.235 kg The patient appeared well nourished and normally developed. Vital signs as documented. Currently on 2 L of O2 nasal cannula Head exam is unremarkable. No scleral icterus or corneal arcus noted. Neck is without jugular venous distension, thyromegaly, or carotid bruits. Carotid upstrokes are brisk bilaterally. Lungs are diminished bilaterally along with scattered expiratory wheezes throughout the lung lanier Cardiac exam reveals the PMI to be normally sized and situated. Rhythm is regular. First and second heart sounds normal. No murmurs, rubs or gallops. Abdominal exam reveals normal bowel sounds, no masses, no organomegaly and no aortic enlargement. Extremities are nonedematous and both femoral and pedal pulses are normal. Examination of the skin revealed no evidence of significant rashes, suspicious appearing nevi or other concerning lesions. Neurologically, the patient is awake and alert and the patient does not have any focal neurological deficit. Cranial nerves are essentially intact. Results - Laboratory Findings CBC and BMP: 07/25/24 14:23 07/24/24 12:32 PT/INR, D-dimer PT 10.4 sec (10.0-12.5) 07/24/24 12:32 INR 0.9 (<1.2) 07/24/24 12:32 Abnormal lab findings: Abnormal Labs 07/24/24 07/24/24 07/25/24 12:32 12:32 14:23 WBC 11.7 H RBC 2.46 L Hgb 8.5 L Hct 22.6 L MCHC 37.6 H Neutrophils # 10.1 H Sodium 133 L Glucose 110 H AST 39 H ALT 42 H - Diagnostic Findings Chest x-ray: image reviewed Assessment and Plan Plan: Acute COPD exacerbation with exposure to influenza A. Viral 4 Plex has been negative. Acute hypoxic respiratory failure currently on 2 L of O2 nasal cannula Hypertension Hyperlipidemia Coronary artery disease History of chronic and ongoing nicotine use History of marijuana use, edible Plan Titrate oxygen flow to maintain saturation above 90% Continue [facility] IV Solu-Medrol 60 mg every 6 hours Resume home medications Smoking cessation counseling Will continue to follow
[2024-07-25] MEDS: MELATONIN 3 MG TABLET PO SCH (20:58)
--- NOTE | 2024-07-26 03:39 | PN ---
PROGRESS NOTE DATE OF SERVICE: 07/25/2024 SUBJECTIVE: This is a 68-year-old woman, who was admitted with COPD acute exacerbation, also had possible flu. The patient is complaining of severe tiredness, weakness, and dehydration. The patient is being closely monitored. IV fluids are being given. OBJECTIVE: VITAL SIGNS: Pulse is 69, blood pressure 108/56, respirations 17. CHEST: A few scattered rhonchi and crackles. ABDOMEN: Soft. NERVOUS SYSTEM: Nonfocal. LABORATORY DATA: Hemoglobin 8.5. Rest of the labs are reviewed. ASSESSMENT: 1. Chronic obstructive pulmonary disease acute exacerbation with acute purulent tracheobronchitis. 2. Possible influenza. 3. Dehydration. 4. Coronary artery disease. 5. Hypertension. 6. Hyperlipidemia. 7. Multiple medical issues. RECOMMENDATIONS AND DISCUSSION: Recommend to continue current management and the patient possibly had tracheobronchitis. I will continue with the bronchodilators, Tamiflu, and as well as steroids, IV fluids. Continue to monitor. Guarded prognosis. Repeat labs in the morning. Further recommendations to follow. MMODL / IJN: [id number] /
[2024-07-26 07:52] LABS: Basophils % (A) 0 %; Eosinophils # (A) 0.1 k/uL (0-0.7); Eosinophils % (A) 0 %; HCT 36.5 % (34.0-46.0); HGB 12.1 gm/dL (11.4-16.0); Lymphocytes % (A) 6 %; MCH 30.7 pg (25.0-35.0); MCHC 33.2 g/dL (31.0-37.0); MCV 92.6 fL (80.0-100.0); Mean Platelet Volume 7.4; Monocytes # (A) 0.8 k/uL (0-1.0); Monocytes % (A) 5 %; Neutrophils # (A) 15.8 k/uL (1.3-7.7); Neutrophils % (A) 89 %; Platelet Count 441 k/uL (150-450); RBC 3.94 m/uL (3.80-5.40); RDW 12.1 % (11.5-15.5); WBC 17.7 k/uL (3.8-10.6)
[2024-07-26 08:35] LABS: AST 27 U/L (14-36); African American GFR (CKD) >90 (>60 ml/min/1.73 sqM); Albumin 4.5 g/dL (3.5-5.0); Alkaline Phosphatase 63 U/L (38-126); Anion Gap 11 mmol/L; Blood Urea Nitrogen 20 mg/dL (7-17); Calcium 9.8 mg/dL (8.4-10.2); Carbon Dioxide 23 mmol/L (22-30); Chloride 96 mmol/L (98-107); Glucose 143 mg/dL (74-99); Non-African American GFR(CKD) >90 (>60 ml/min/1.73 sqM); Potassium 5.2 mmol/L (3.5-5.1); Sodium 130 mmol/L (137-145); Total Bilirubin 0.6 mg/dL (0.2-1.3); Total Protein 7.1 g/dL (6.3-8.2)
[2024-07-26 08:46] LABS: ALT 36 U/L (4-34)
[2024-07-26] MEDS: guaiFENesin-DM 600/30MG 1 EACH TAB.ER.12H PO SCH (11:33)
--- NOTE | 2024-07-26 13:49 | P.PN ---
Subjective Progress Note Date: 07/26/24 This this is a 68-year-old female patient, chronic smoker, [facility] because of increased dyspnea, cough, congestion and wheezing. She was exposed to influenza A from a family member. The patient tested negative for influenza A and she was started on Tamiflu empirically. Chest x-ray completed shows no acute abnormalities other than some background COPD. No pleurisy. No hemoptysis. No swelling lower extremities. The white cell count is 11 with a hemoglobin 12.2 and a platelet count of 404. Electrolytes are all within normal limits. Troponins are negative. Started on bronchodilators and steroids. She does not utilize any form of respiratory medications on outpatient basis. Does not utilize home O2. She smokes 1 pack of cigarettes a day. On 07/26/2024, the patient is being seen for a follow-up. Doing better. Less bronchospastic and wheezy compared to yesterday. No new complaints. White cell count at 17 with a hemoglobin 12.1. Sodium is at 130, BUN is 20 creatinine 0.68. No other new complaints otherwise for now. Remains essentially on same treatment. Remains on Tamiflu and IV Solu-Medrol. Objective - Vital Signs Vital signs: Vital Signs Temp 96.5 F L 07/26/24 07:45 Pulse 78 07/26/24 08:23 Resp 16 07/26/24 07:45 BP 92/54 07/26/24 07:45 Pulse Ox 96 07/26/24 08:13 FiO2 Intake & Output 07/25/24 07/26/24 07/26/24 18:59 06:59 18:59 Intake Total 675 Balance 675 Intake: Intake, IV Titration 675 Amount Sodium Chloride 0.9% 1, 675 000 ml @ 75 mls/hr IV . [id number] [facility] Rx#:[id number] Other: Voiding Method Toilet # Voids 2 2 - Exam The patient appeared well nourished and normally developed. Vital signs as documented. Currently on 2 L of O2 nasal cannula Head exam is unremarkable. No scleral icterus or corneal arcus noted. Neck is without jugular venous distension, thyromegaly, or carotid bruits. Carotid upstrokes are brisk bilaterally. Lungs are diminished bilaterally along with scattered expiratory wheezes throughout the lung lanier Cardiac exam reveals the PMI to be normally sized and situated. Rhythm is regular. First and second heart sounds normal. No murmurs, rubs or gallops. Abdominal exam reveals normal bowel sounds, no masses, no organomegaly and no aortic enlargement. Extremities are nonedematous and both femoral and pedal pulses are normal. Examination of the skin revealed no evidence of significant rashes, suspicious appearing nevi or other concerning lesions. Neurologically, the patient is awake and alert and the patient does not have any focal neurological deficit. Cranial nerves are essentially intact. - Labs CBC & Chem 7: 07/26/24 07:10 07/26/24 07:10 Labs: Abnormal Lab Results - Last 24 Hours (Table) 07/25/24 07/26/24 07/26/24 Range/Units 14:23 07:10 07:10 WBC 11.7 H 17.7 H (3.8-10.6) k/uL Neutrophils # 10.1 H 15.8 H (1.3-7.7) k/uL Sodium 130 L (137-145) mmol/L Potassium 5.2 H (3.5-5.1) mmol/L Chloride 96 L (98-107) mmol/L BUN 20 H (7-17) mg/dL Glucose 143 H (74-99) mg/dL ALT 36 H (4-34) U/L Assessment and Plan Plan: Acute COPD exacerbation with exposure to influenza A. Viral 4 Plex has been negative. Acute hypoxic respiratory failure currently on 2 L of O2 nasal cannula Hypertension Hyperlipidemia Coronary artery disease History of chronic and ongoing nicotine use History of marijuana use, edible Plan Continue same treatment. Clinically somewhat improved compared to yesterday. Titrate oxygen flow to maintain saturation above 90% Continue [facility] IV Solu-Medrol 60 mg every 6 hours Resume home medications Smoking cessation counseling Will continue to follow
[2024-07-26] MEDS ORDERED: MAG HYDROX/AL HYDROX/SIMETH 30 ML CUP PO PRN (14:52)
[2024-07-26] MEDS: PANTOPRAZOLE 40 MG TABLET PO SCH (15:23)
[2024-07-26] MEDS: METOPROLOL TARTRATE 25 MG TAB PO SCH (20:12)
--- NOTE | 2024-07-26 22:15 | PN ---
PROGRESS NOTE DATE OF SERVICE: 07/26/2024 SUBJECTIVE: This is a 68-year-old woman, who was admitted with COPD acute exacerbation, also had acute purulent tracheobronchitis. The patient also had exposure to influenza. The patient is complaining of tiredness and weakness. OBJECTIVE: VITAL SIGNS: Pulse 76, blood pressure 92/54, respirations 16. CHEST: A few scattered rhonchi and crackles. ABDOMEN: Soft. NERVOUS SYSTEM: Nonfocal. LABORATORY DATA: Reviewed. ASSESSMENT: 1. Chronic obstructive pulmonary disease acute exacerbation with acute purulent tracheobronchitis. 2. Possible influenza with a history of exposure. 3. Dehydration and relative hypotension. 4. Coronary artery disease. 5. History of hypertension. 6. Hyperlipidemia. 7. Multiple medical issues. RECOMMENDATIONS: Recommend to continue current management and continue symptomatic treatment. IV fluids, no dripping. Continue with IV fluids and hold losartan and cut down the dose of metoprolol to 25 b.i.d. Continue to monitor. Guarded prognosis. Further recommendations to follow. MMODL / IJN: [id number] /
[2024-07-27 07:01] LABS: Basophils % (A) 0 %; Eosinophils # (A) 0.1 k/uL (0-0.7); Eosinophils % (A) 0 %; HGB 10.9 gm/dL (11.4-16.0); Lymphocytes # (A) 0.6 k/uL (1.0-4.8); Lymphocytes % (A) 4 %; MCH 31.3 pg (25.0-35.0); MCHC 34.1 g/dL (31.0-37.0); MCV 91.6 fL (80.0-100.0); Mean Platelet Volume 8.4; Monocytes # (A) 0.6 k/uL (0-1.0); Monocytes % (A) 5 %; Neutrophils # (A) 11.9 k/uL (1.3-7.7); Neutrophils % (A) 90 %; Platelet Count 387 k/uL (150-450); RDW 12.6 % (11.5-15.5); WBC 13.1 k/uL (3.8-10.6)
[2024-07-27 07:19] LABS: African American GFR (CKD) >90 (>60 ml/min/1.73 sqM); Anion Gap 8 mmol/L; Blood Urea Nitrogen 13 mg/dL (7-17); Calcium 8.8 mg/dL (8.4-10.2); Carbon Dioxide 21 mmol/L (22-30); Chloride 103 mmol/L (98-107); Glucose 239 mg/dL (74-99); Non-African American GFR(CKD) >90 (>60 ml/min/1.73 sqM); Potassium 4.6 mmol/L (3.5-5.1); Sodium 132 mmol/L (137-145)
--- NOTE | 2024-07-27 08:48 | P.PN ---
Subjective Progress Note Date: 07/27/24 This this is a 68-year-old female patient, chronic smoker, presented to the [facility] because of increased dyspnea, cough, congestion and wheezing. She was exposed to influenza A from a family member. The patient tested negative for influenza A and she was started on Tamiflu empirically. Chest x-ray completed shows no acute abnormalities other than some background COPD. No pleurisy. No hemoptysis. No swelling lower extremities. The white cell count is 11 with a hemoglobin 12.2 and a platelet count of 404. Electrolytes are all within normal limits. Troponins are negative. Started on bronchodilators and steroids. She does not utilize any form of respiratory medications on outpatient basis. Does not utilize home O2. She smokes 1 pack of cigarettes a day. On 07/26/2024, the patient is being seen for a follow-up. Doing better. Less bronchospastic and wheezy compared to yesterday. No new complaints. White cell count at 17 with a hemoglobin 12.1. Sodium is at 130, BUN is 20 creatinine 0.68. No other new complaints otherwise for now. Remains essentially on same treatment. Remains on Tamiflu and IV Solu-Medrol. 07/27/2024, the patient reports that her breathing is somewhat still funky. On examination, she is less mucus passing and wheezy. She has improved in terms of her oxygenation and the patient is currently on room air oxygen. She is still having some limited congestion. No fever. No other new complaints otherwise for now. Objective - Vital Signs Vital signs: Vital Signs Temp 97.8 F 07/27/24 07:26 Pulse 80 07/27/24 08:38 Resp 16 07/27/24 07:26 BP 105/60 07/27/24 07:26 Pulse Ox 95 07/27/24 02:00 FiO2 Intake & Output 07/26/24 07/27/24 07/27/24 18:59 06:59 18:59 Other: Voiding Method Toilet # Voids 3 2 - Exam The patient appeared well nourished and normally developed. Vital signs as documented. Currently on RA Head exam is unremarkable. No scleral icterus or corneal arcus noted. Neck is without jugular venous distension, thyromegaly, or carotid bruits. Carotid upstrokes are brisk bilaterally. Lungs are diminished bilaterally along with scattered expiratory wheezes throughout the lung lanier Cardiac exam reveals the PMI to be normally sized and situated. Rhythm is regular. First and second heart sounds normal. No murmurs, rubs or gallops. Abdominal exam reveals normal bowel sounds, no masses, no organomegaly and no aortic enlargement. Extremities are nonedematous and both femoral and pedal pulses are normal. Examination of the skin revealed no evidence of significant rashes, suspicious appearing nevi or other concerning lesions. Neurologically, the patient is awake and alert and the patient does not have any focal neurological deficit. Cranial nerves are essentially intact. - Labs CBC & Chem 7: 07/27/24 06:03 07/27/24 06:03 Labs: Abnormal Lab Results - Last 24 Hours (Table) 07/26/24 07/27/24 07/27/24 Range/Units 07:10 06:03 06:03 WBC 13.1 H (3.8-10.6) k/uL RBC 3.50 L (3.80-5.40) m/uL Hgb 10.9 L (11.4-16.0) gm/dL Hct 32.0 L (34.0-46.0) % Neutrophils # 11.9 H (1.3-7.7) k/uL Lymphocytes # 0.6 L (1.0-4.8) k/uL Sodium 130 L 132 L (137-145) mmol/L Potassium 5.2 H (3.5-5.1) mmol/L Chloride 96 L (98-107) mmol/L Carbon Dioxide 21 L (22-30) mmol/L BUN 20 H (7-17) mg/dL Glucose 143 H 239 H (74-99) mg/dL ALT 36 H (4-34) U/L Assessment and Plan Plan: Acute COPD exacerbation with exposure to influenza A. Viral 4 Plex has been negative. Acute hypoxic respiratory failure currently on RA Hypertension Hyperlipidemia Coronary artery disease History of chronic and ongoing nicotine use History of marijuana use, edible Plan Continue same treatment. Clinically somewhat improved compared to yesterday. Titrate oxygen flow to maintain saturation above 90% Continue [facility] IV Solu-Medrol 60 mg every 6 hours and transition the patient to a prednisone burst taper at time of discharge Resume home medications Smoking cessation counseling Will continue to follow, home either today or over the next 24 hours
--- NOTE | 2024-07-27 10:15 | P.PN ---
Subjective Progress Note Date: 07/27/24 This this is a 68-year-old female patient, chronic smoker, presented to the hospital because of increased dyspnea, cough, congestion and wheezing. She was exposed to influenza A from a family member. The patient tested negative for influenza A and she was started on Tamiflu empirically. Chest x-ray completed shows no acute abnormalities other than some background COPD. No pleurisy. No hemoptysis. No swelling lower extremities. The white cell count is 11 with a hemoglobin 12.2 and a platelet count of 404. Electrolytes are all within normal limits. Troponins are negative. Started on bronchodilators and steroids. She does not utilize any form of respiratory medications on outpatient basis. Does not utilize home O2. She smokes 1 pack of cigarettes a day. 07/27. Patient seen and examined. Still complaining of cough and shortness of breath on exertion REVIEW OF SYSTEMS: CONSTITUTIONAL: No fever, no malaise,. CARDIOVASCULAR: No chest pain, no palpitations, no syncope. PULMONARY: As mentioned above GASTROINTESTINAL: No diarrhea, no nausea, no vomiting, no abdominal pain. NEUROLOGICAL: No headaches, no weakness, PHYSICAL EXAMINATION: GENERAL: The patient is alert and oriented x3, not in any acute distress. Well developed, well nourished. HEENT: Pupils are round and equally reacting to light. EOMI. No scleral icterus. No conjunctival pallor. Normocephalic, atraumatic. No pharyngeal erythema. No thyromegaly. CARDIOVASCULAR: S1 and S2 present. No murmurs, rubs, or gallops. PULMONARY: Chest is clear to auscultation, no wheezing or crackles. ABDOMEN: Soft, nontender, nondistended, normoactive bowel sounds. No palpable organomegaly. MUSCULOSKELETAL: No joint swelling or deformity. EXTREMITIES: No cyanosis, clubbing, or pedal edema. NEUROLOGICAL: Gross neurological examination did not reveal any focal deficits. SKIN: No rashes. Assessment and plan Acute COPD exacerbation with exposure to influenza A. Acute hypoxic respiratory failure Hypertension Hyperlipidemia Coronary artery disease History of chronic and ongoing nicotine use History of marijuana use, edible Monitor vital signs Monitor CBC Monitor CMP Aggressive bronchopulmonary hygiene Continue breathing treatments Continue IV Solu-Medrol Pulmonology following Counseled regarding smoking cessation Labs and medication were reviewed.. Continue same treatment. Continue with symptomatic treatment. Resume home medication. Monitor labs and vitals. DVT and GI prophylaxis. Further recommendations as per clinical course of the patient Dictation was produced using [employer] dictation software. please excuse any grammatical, word or spelling errors. Objective - Vital Signs Vital signs: Vital Signs Temp 97.8 F 07/27/24 07:26 Pulse 80 07/27/24 08:38 Resp 16 07/27/24 07:26 BP 105/60 07/27/24 07:26 Pulse Ox 95 07/27/24 02:00 FiO2 Intake & Output 07/26/24 07/27/24 07/27/24 18:59 06:59 18:59 Other: Voiding Method Toilet # Voids 3 2 - Labs CBC & Chem 7: 07/27/24 06:03 07/27/24 06:03 Labs: Abnormal Lab Results - Last 24 Hours (Table) 07/27/24 07/27/24 Range/Units 06:03 06:03 WBC 13.1 H (3.8-10.6) k/uL RBC 3.50 L (3.80-5.40) m/uL Hgb 10.9 L (11.4-16.0) gm/dL Hct 32.0 L (34.0-46.0) % Neutrophils # 11.9 H (1.3-7.7) k/uL Lymphocytes # 0.6 L (1.0-4.8) k/uL Sodium 132 L (137-145) mmol/L Carbon Dioxide 21 L (22-30) mmol/L Glucose 239 H (74-99) mg/dL
[2024-07-27 19:34] VITALS: RESP 17
[2024-07-28 08:48] VITALS: BP 131/71; TEMP 98
--- NOTE | 2024-07-28 10:49 | P.DS ---
Providers Date of admission: 07/24/24 14:48 Expected date of discharge: 07/28/24 Attending physician: Popeye Cuevas Consults: 07/25/24 09:48 Consult Physician Urgent Consulting Provider: Keaton Chowdhury Consult Reason/Comments: copd, hypoxia Do you want consulting provider notified?: Yes Primary care physician: Kristen River Hospital Course: Discharge diagnoses; Acute COPD exacerbation with exposure to influenza A. Acute hypoxic respiratory failure Hypertension Hyperlipidemia Coronary artery disease History of chronic and ongoing nicotine use History of marijuana use, edible Hospital course; This this is a 68-year-old female patient, chronic smoker, presented to the hospital because of increased dyspnea, cough, congestion and wheezing. She was exposed to influenza A from a family member. The patient tested negative for influenza A and she was started on Tamiflu empirically. Chest x-ray completed shows no acute abnormalities other than some background COPD. No pleurisy. No hemoptysis. No swelling lower extremities. The white cell count is 11 with a hemoglobin 12.2 and a platelet count of 404. Electrolytes are all within normal limits. Troponins are negative. Started on bronchodilators and steroids. She does not utilize any form of respiratory medications on outpatient basis. Does not utilize home O2. She smokes 1 pack of cigarettes a day. 07/27. Patient seen and examined. Still complaining of cough and shortness of breath on exertion. 07/28. Patient seen and examined. Being discharged on Tamiflu, tapering dose of prednisone, albuterol. PHYSICAL EXAMINATION: GENERAL: The patient is alert and oriented x3, not in any acute distress. Well developed, well nourished. HEENT: Pupils are round and equally reacting to light. EOMI. No scleral icterus. No conjunctival pallor. Normocephalic, atraumatic. No pharyngeal erythema. No thyromegaly. CARDIOVASCULAR: S1 and S2 present. No murmurs, rubs, or gallops. PULMONARY: Chest is clear to auscultation, no wheezing or crackles. ABDOMEN: Soft, nontender, nondistended, normoactive bowel sounds. No palpable organomegaly. MUSCULOSKELETAL: No joint swelling or deformity. EXTREMITIES: No cyanosis, clubbing, or pedal edema. NEUROLOGICAL: Gross neurological examination did not reveal any focal deficits. SKIN: No rashes. Dictation was produced using [employer] software. please excuse any grammatical, word or spelling errors. Plan - Discharge Summary Discharge Rx Participant: No New Discharge Prescriptions: New predniSONE 10 mg PO DAILY 8 Days #20 tab Oseltamivir [Tamiflu] 75 mg PO Q12HR 1 Days #2 cap Continue Rosuvastatin [Crestor] 10 mg PO DAILY Losartan Potassium [Cozaar] 50 mg PO DAILY Metoprolol Tartrate [Lopressor] 50 mg PO BID Aspirin [Adult Low Dose Aspirin EC] 81 mg PO HS Discharge Medication List Losartan Potassium [Cozaar] 50 mg PO DAILY 11/04/22 [History] Rosuvastatin [Crestor] 10 mg PO DAILY 11/04/22 [History] Aspirin [Adult Low Dose Aspirin EC] 81 mg PO HS 07/24/24 [History] Metoprolol Tartrate [Lopressor] 50 mg PO BID 07/24/24 [History] Oseltamivir [Tamiflu] 75 mg PO Q12HR 1 Days #2 cap 07/28/24 [Rx] predniSONE 10 mg PO DAILY 8 Days #20 tab 07/28/24 [Rx] Follow up Appointment(s)/Referral(s): Kristen River MD [Primary Care Provider] - 1-2 days Discharge Disposition: HOME SELF-CARE
[2024-07-28 11:49] VITALS: PULSE 74
== END 2024-07-28 12:28 | disposition home or self-care (01) | DRG 190 ==
LOC: EC 11:48 → 1SOBS 14:48 → OBSVTOIN 14:48 → 1SOBS 17:36 → 6NMEDSUR 07-27 16:26
PROVIDERS: ADMIT Hospitalist; ATTEND Hospitalist
DX: J44.1 Chronic obstructive pulmonary disease with (acute) exacerbation (principal); J96.01 Acute respiratory failure with hypoxia; I10 Essential (primary) hypertension; E78.5 Hyperlipidemia, unspecified; J10.1 Influenza due to other identified influenza virus with other respiratory manifestations; Z20.828 Contact with and (suspected) exposure to other viral communicable diseases; F17.210 Nicotine dependence, cigarettes, uncomplicated; I25.10 Atherosclerotic heart disease of native coronary artery without angina pectoris; Z71.6 Tobacco abuse counseling; Z11.52 Encounter for screening for COVID-19; E86.0 Dehydration; Z79.82 Long term (current) use of aspirin; Z79.899 Other long term (current) drug therapy; Z90.710 Acquired absence of both cervix and uterus
CPT/HCPCS: 36415; 71046; 80048; 80053; 83605; 83735; 83880; 84484; 85025; 85610; 85730; 87636; 93005; 94640; 94760; 96374; 99285